=== PATIENT | female | born 1965 | race American Indian/Alaskan Native ===

== ENCOUNTER 2017-11-08 15:08 | Emergency (ER) | payer SELFPAY ==
--- NOTE | 2017-11-08 21:06 | Emergency Department Report ---
ED General Adult HPI - General Chief complaint: Extremity Problem,Nontraumatic Stated complaint: BILATERAL ANKLE SWELLING Time Seen by Provider: 11/08/17 20:53 Source: patient, RN notes reviewed Mode of arrival: Ambulatory Limitations: No Limitations - History of Present Illness Initial comments: This is a 52-year-old female who was previously unknown to this provider. She does not have a local primary care doctor. She endorses a past history of hypertension, diabetes, chronic intermittent left lower extremity edema after multiple orthopedic surgeries. She presents to the ER with nontraumatic bilateral foot and ankle swelling which has been present for the past 3-4 days. It does not go down with rest. It is mildly painful and achy. There is no chest pain or shortness of breath. There is no hematemesis or bright red blood per rectum. Patient reports a recent 15 hour trip to [place] by automobile. Her symptoms are constant, did not radiate anywhere, and did not have exacerbating or relieving factors. -: Gradual, days(s) Location: left, right, lower extremity Consistency: constant Improves with: none Worsens with: none Associated Symptoms: denies other symptoms. denies: confusion, chest pain, cough, diaphoresis, fever/chills, headaches, loss of appetite, malaise, nausea/ vomiting, rash, seizure, shortness of breath, syncope, weakness - Related Data Home Medications Medication Instructions Recorded Confirmed Last Taken Aspirin 81 mg PO DAILY 06/10/16 06/10/16 06/09/16 Ferrous Sulfate [Feosol] 325 mg PO QDAY 06/10/16 06/10/16 Unknown Lisinopril/Hydrochlorothiazide 1 tab PO DAILY 06/10/16 06/10/16 06/09/16 [Zestoretic 10-12.5 mg] Metformin HCl [Fortamet ER] 1,000 mg PO BID 06/10/16 06/10/16 06/10/16 Ranitidine HCl [Zantac 150 MG TAB] 150 mg PO DAILY 06/10/16 06/10/16 Unknown Allergies Allergy/AdvReac Type Severity Reaction Status Date / Time Penicillins Allergy Hives Verified 01/29/16 21:50 ED Review of Systems ROS: Stated complaint: BILATERAL ANKLE SWELLING Other details as noted in HPI Comment: All other systems reviewed and negative ED Past Medical Hx - Past Medical History Hx Hypertension: Yes Hx Diabetes: Yes - Surgical History Additional Surgical History: tubal ligation. multiple left foot surgeries - Social History Smoking Status: Never Smoker Substance Use Type: Alcohol - Medications Home Medications: Home Medications Medication Instructions Recorded Confirmed Last Taken Type Aspirin 81 mg PO DAILY 06/10/16 06/10/16 06/09/16 History Ferrous Sulfate [Feosol] 325 mg PO QDAY 06/10/16 06/10/16 Unknown History Lisinopril/Hydrochlorothiazide 1 tab PO DAILY 06/10/16 06/10/16 06/09/16 History [Zestoretic 10-12.5 mg] Metformin HCl [Fortamet ER] 1,000 mg PO BID 06/10/16 06/10/16 06/10/16 History Ranitidine HCl [Zantac 150 MG TAB] 150 mg PO DAILY 06/10/16 06/10/16 Unknown History ED Physical Exam - General Limitations: No Limitations General appearance: alert, in no apparent distress - Head Head exam: Present: atraumatic, normocephalic - Eye Eye exam: Present: normal appearance, EOMI. Absent: nystagmus - ENT ENT exam: Present: normal exam, normal orophraynx, mucous membranes moist, normal external ear exam - Neck Neck exam: Present: normal inspection, full ROM - Respiratory Respiratory exam: Present: normal lung sounds bilaterally. Absent: respiratory distress - Cardiovascular Cardiovascular Exam: Present: regular rate, normal rhythm, normal heart sounds. Absent: systolic murmur, diastolic murmur, rubs, gallop - GI/Abdominal GI/Abdominal exam: Present: soft, normal bowel sounds. Absent: distended, tenderness, guarding, rebound, rigid, pulsatile mass - Extremities Exam Extremities exam: Present: normal inspection, full ROM, normal capillary refill , pedal edema, other (there is no palpable cord. There is a negative Homans sign. 2+ pulses noted in the bilateral upper and lower extremities. Left lower extremity has multiple chronic scars from multiple orthopedic surgeries. The compartments are soft. There is no pain with passive range of motion.). Absent: tenderness, calf tenderness - Back Exam Back exam: Present: normal inspection, full ROM. Absent: tenderness, CVA tenderness (R), paraspinal tenderness, vertebral tenderness - Neurological Exam Neurological exam: Present: alert, oriented X3, CN II-XII intact, normal gait, other (Extraocular movements intact. Tongue midline. No facial droop. Facial sensation intact to light touch in the V1, V2, V3 distribution bilaterally. 5 and 5 strength in 4 extremities.. Sensation is intact to light touch in 4 extremities.). Absent: motor sensory deficit - Psychiatric Psychiatric exam: Present: normal affect, normal mood - Skin Skin exam: Present: warm, dry, intact, normal color. Absent: rash ED Course Vital Signs 11/08/17 11/08/17 15:58 22:03 Temperature 98.2 F Pulse Rate 88 80 Respiratory 18 18 Rate Blood Pressure 149/101 Blood Pressure 152/92 [Left] O2 Sat by Pulse 98 99 Oximetry ED Medical Decision Making - Lab Data Result diagrams: 11/08/17 21:08 11/08/17 21:08 Vital Signs 11/08/17 11/08/17 15:58 22:03 Temperature 98.2 F Pulse Rate 88 80 Respiratory 18 18 Rate Blood Pressure 149/101 Blood Pressure 152/92 [Left] O2 Sat by Pulse 98 99 Oximetry Lab Results 11/08/17 11/08/17 11/08/17 Range/Units 21:08 21:08 21:08 WBC 6.2 (4.5-11.0) K/mm3 RBC 4.84 (3.65-5.03) M/mm3 Hgb 12.7 (10.1-14.3) gm/dl Hct 38.9 (30.3-42.9) % MCV 80 (79-97) fl MCH 26 L (28-32) pg MCHC 33 (30-34) % RDW 16.2 H (13.2-15.2) % Plt Count 318 (140-440) K/mm3 PT 12.1 L (12.2-14.9) Sec. INR 0.86 L (0.87-1.13) D-Dimer < 135.00 (0-234) ng/mlDDU Sodium 139 (137-145) mmol/L Potassium 3.9 (3.6-5.0) mmol/L Chloride 98.9 (98-107) mmol/L Carbon Dioxide 28 (22-30) mmol/L Anion Gap 16 mmol/L BUN 7 (7-17) mg/dL Creatinine 0.5 L (0.7-1.2) mg/dL Estimated GFR > 60 ml/min BUN/Creatinine Ratio 14 % Glucose 151 H (65-100) mg/dL Calcium 9.8 (8.4-10.2) mg/dL Total Bilirubin 0.20 (0.1-1.2) mg/dL AST 25 (5-40) units/L ALT 17 (7-56) units/L Alkaline Phosphatase 70 (35-129) units/L Total Creatine Kinase 55 (30-135) units/L NT-Pro-B Natriuret Pep 24.08 (0-900) pg/mL Total Protein 7.2 (6.3-8.2) g/dL Albumin 4.4 (3.9-5) g/dL Albumin/Globulin Ratio 1.6 % - Medical Decision Making Differential diagnosis, including without limited to: DVT, renal insufficiency, hepatic insufficiency, venous insufficiency Assessment and plan: 52-year-old female with history of dependent edema and left lower extremity now with bilateral lower extremity edema after recent [address] trip to [place]. There are no contraindications to systemic anticoagulation empirically. There is no chest pain or shortness of breath and the physical exam shows lower extremity edema. A d-dimer was negative. Laboratory studies were unremarkable, patient had no focal pulmonary findings on exam, therefore did not feel like chest x-ray was indicated. Outpatient lower extremity DVT study has been ordered as the patient presented after the vascular lab is closed. The patient will be instructed to return at 8:00 in the morning to have her bilateral lower extremity DVT study performed. Critical care attestation.: If time is entered above; I have spent that time in minutes in the direct care of this critically ill patient, excluding procedure time. ED Disposition Clinical Impression: Lower extremity edema Disposition: DC-01 TO HOME OR SELFCARE Is pt being admited?: No Does the pt Need Aspirin: No Condition: Stable Instructions: Leg Edema (ED) Additional Instructions: please call [phone], listen for the prompts and select option 1 to speak to our staff, Available Wednesday through Wednesday, 7 am to 5 pm PM to assist you. Make certain to bring the ultrasound requisition form with you. Please return to the ER right away with chest pain, shortness of breath, passing out, lightheadedness, shortness of breath, new, worsening or different symptoms. Referrals: PRIMARY CARE, [Primary Care Provider] - 3-5 Days DICRISTINA,MJ, MD [Staff Physician] - 3-5 Days Forms: Work/School Release Form(ED)
[2017-11-08 21:29] LABS: Hematocrit 38.9 % (30.3-42.9); Hemoglobin 12.7 gm/dl (10.1-14.3); Mean Corpuscular HGB Conc 33 % (30-34); Mean Corpuscular Hemoglobin 26 pg (28-32); Mean Corpuscular Volume 80 fl (79-97); Platelet Count 318 K/mm3 (140-440); Red Blood Count 4.84 M/mm3 (3.65-5.03); Red Cell Distribution Width 16.2 % (13.2-15.2)
[2017-11-08 21:39] LABS: INR 0.86 (0.87-1.13)
[2017-11-08 21:58] LABS: Alanine Aminotransferase 17 units/L (7-56); Albumin 4.4 g/dL (3.9-5); BUN/Creatinine Ratio 14; Blood Urea Nitrogen 7 mg/dL (7-17); Calcium 9.8 mg/dL (8.4-10.2); Hemolysis Index 2
[2017-11-08 22:04] VITALS: BP 152/92
[2017-11-08] MEDS ORDERED: TYLENOL PO ONE (22:05)
[2017-11-08] MEDS ORDERED: LOVENOX SUB-Q ONE (22:06)
== END 2017-11-08 22:43 | disposition home or self-care (01) ==
LOC: ED 15:08
DX: R60.9 Edema, unspecified (principal); I10 Essential (primary) hypertension; E11.9 Type 2 diabetes mellitus without complications; Z88.0 Allergy status to penicillin; Z79.82 Long term (current) use of aspirin
CPT/HCPCS: 36415; 80053; 82550; 83880; 85027; 85379; 85610; 96372; 99283; J1650

== ENCOUNTER 2017-11-09 11:05 | Outpatient (CLI) | payer SELFPAY | END 2017-11-09 11:06 | disposition home or self-care (01) | LOC: VAS 11:05 | PROVIDERS: ATTEND Emergency Medicine | DX: M79.661 Pain in right lower leg (principal); M79.662 Pain in left lower leg; M79.89 Other specified soft tissue disorders | CPT/HCPCS: 93970 ==

== ENCOUNTER 2018-05-18 17:50 | Emergency (ER) | payer SELFPAY ==
[2018-05-18] MEDS ORDERED: ZESTRIL PO ONE (18:29)
[2018-05-18] MEDS ORDERED: ZESTRIL ONE (18:30)
[2018-05-18] MEDS ORDERED: NORVASC PO ONE (20:32)
[2018-05-18] MEDS ORDERED: NORVASC ONE (20:37)
--- NOTE | 2018-05-18 21:19 | Emergency Department Report ---
ED Extremity Problem HPI - General Chief complaint: Extremity Injury, Lower Stated complaint: ANKLE/BACK PAIN Source: patient Mode of arrival: Ambulatory Limitations: No Limitations - History of Present Illness Initial comments: 52-year-old -[place] female comes in complaining of left ankle pain 5 days and left great toe 4 days. Patient reports that she has a history of chronic left ankle swelling status post left ankle fusion. She complains of bilateral ankle swelling. Patient does admit to recently starting a new job where she is constantly on her feet lifting and moving it was noted in triage the patient's blood pressure was 202/122 patient admits that she has been ran out of her hypertensive medicine and the last 2 days. Patient denies any blurred vision no dizziness she does admit to a slight headache denies any chest pain denies any shortness of breathing she denies any recent trauma to her foot. Patient has not taken anything for pain. MD Complaint: extremity swelling -: days(s) (5) Location: left (left great toe), bilateral lower extremity (ankle swelling) -: Yes arthralgia Severity scale (0 -10): 8 Consistency: intermittent Improves with: elevation, rest Worsens with: walking Associated Symptoms: denies other symptoms - Related Data Home Medications Medication Instructions Recorded Confirmed Last Taken Aspirin 81 mg PO DAILY 06/10/16 06/10/16 06/09/16 Ferrous Sulfate [Feosol] 325 mg PO QDAY 06/10/16 06/10/16 Unknown Lisinopril/Hydrochlorothiazide 1 tab PO DAILY 06/10/16 06/10/16 06/09/16 [Zestoretic 10-12.5 mg] Metformin HCl [Fortamet ER] 1,000 mg PO BID 06/10/16 06/10/16 06/10/16 Ranitidine HCl [Zantac 150 MG TAB] 150 mg PO DAILY 06/10/16 06/10/16 Unknown Previous Rx's Medication Instructions Recorded Last Taken Type Ibuprofen [Motrin] 800 mg PO Q8HR PRN #20 tablet 01/28/18 Unknown Rx traMADol [Ultram 50 MG tab] 50 mg PO Q6HR PRN #20 tablet 01/28/18 Unknown Rx Lisinopril/Hydrochlorothiazide 1 tab PO QDAY #15 tab 05/18/18 Unknown Rx [Zestoretic 20-12.5 mg] traMADol [Ultram 50 MG tab] 50 mg PO Q6HR #12 tablet 05/18/18 Unknown Rx Allergies Allergy/AdvReac Type Severity Reaction Status Date / Time Penicillins Allergy Hives Verified 01/29/16 21:50 ED Review of Systems ROS: Stated complaint: ANKLE/BACK PAIN Other details as noted in HPI Constitutional: denies: chills, fever Eyes: denies: eye pain, eye discharge, vision change ENT: denies: ear pain, throat pain Respiratory: denies: cough, shortness of breath, wheezing Cardiovascular: denies: chest pain, palpitations Endocrine: no symptoms reported Musculoskeletal: joint swelling, arthralgia ED Past Medical Hx - Past Medical History Previous Medical History?: Yes Hx Hypertension: Yes Hx Diabetes: Yes - Surgical History Additional Surgical History: tubal ligation. multiple left foot surgeries - Social History Smoking Status: Current Every Day Smoker Substance Use Type: Alcohol - Medications Home Medications: Home Medications Medication Instructions Recorded Confirmed Last Taken Type Aspirin 81 mg PO DAILY 06/10/16 06/10/16 06/09/16 History Ferrous Sulfate [Feosol] 325 mg PO QDAY 06/10/16 06/10/16 Unknown History Lisinopril/Hydrochlorothiazide 1 tab PO DAILY 06/10/16 06/10/16 06/09/16 History [Zestoretic 10-12.5 mg] Metformin HCl [Fortamet ER] 1,000 mg PO BID 06/10/16 06/10/16 06/10/16 History Ranitidine HCl [Zantac 150 MG TAB] 150 mg PO DAILY 06/10/16 06/10/16 Unknown History Ibuprofen [Motrin] 800 mg PO Q8HR PRN #20 tablet 01/28/18 Unknown Rx traMADol [Ultram 50 MG tab] 50 mg PO Q6HR PRN #20 tablet 01/28/18 Unknown Rx Lisinopril/Hydrochlorothiazide 1 tab PO QDAY #15 tab 05/18/18 Unknown Rx [Zestoretic 20-12.5 mg] traMADol [Ultram 50 MG tab] 50 mg PO Q6HR #12 tablet 05/18/18 Unknown Rx ED Physical Exam - General Limitations: No Limitations General appearance: alert, in no apparent distress - Head Head exam: Present: atraumatic, normocephalic - ENT ENT exam: Present: mucous membranes moist - Respiratory Respiratory exam: Present: normal lung sounds bilaterally. Absent: respiratory distress - Cardiovascular Cardiovascular Exam: Present: regular rate, normal rhythm. Absent: systolic murmur, diastolic murmur, rubs, gallop - Expanded Lower Extremity Exam Left Upper Leg exam: Present: full ROM Knee exam: Present: full ROM Lower Leg exam: Present: swelling. Absent: palpable cord, Vanesa's sign Ankle exam: Present: swelling Foot/Toe exam: Present: tenderness (right great toe). Absent: swelling, ecchymosis, erythema Neuro vascular tendon exam: Present: no vascular compromise Gait: Positive: not tested/not observed - Neurological Exam Neurological exam: Present: alert, oriented X3 - Psychiatric Psychiatric exam: Present: normal affect, normal mood - Skin Skin exam: Present: warm, dry, intact, normal color. Absent: rash ED Course Vital Signs 05/18/18 05/18/18 05/18/18 18:17 18:31 20:35 Temperature 98.4 F Pulse Rate 87 90 84 Respiratory 18 Rate Blood Pressure 202/122 202/122 201/119 Blood Pressure [Left] O2 Sat by Pulse 95 Oximetry 05/18/18 22:51 Temperature Pulse Rate 74 Respiratory 16 Rate Blood Pressure Blood Pressure 212/119 [Left] O2 Sat by Pulse 98 Oximetry ED Medical Decision Making - Medical Decision Making Patient has been evaluated by this provider in fast track. Patient is given a lisinopril 20 mg and amlodipine 10 blood pressure control Patient has been given tramadol for pain management Discussed patient that she needs to take her blood pressure medicine as prescribed. Discussed patient to elevate her legs in the afternoon try to avoid prolonged time with standing and walking. Discussed patient to follow up with her primary care provider in the next 3-5 days for follow-up. Discussed patient she can take [id number] Tylenol or tramadol prescription. Patient is asymptomatic hypertension refill her blood pressure medication. Have her follow-up with her primary care provider. Critical care attestation.: If time is entered above; I have spent that time in minutes in the direct care of this critically ill patient, excluding procedure time. ED Disposition Clinical Impression: Great toe pain Qualifiers: Laterality: left Qualified Code(s): M79.675 - Pain in left toe(s) Right ankle sprain Qualifiers: Encounter type: initial encounter Involved ligament of ankle: unspecified ligament Qualified Code(s): S93.401A - Sprain of unspecified ligament of right ankle, initial encounter Disposition: DC-01 TO HOME OR SELFCARE Is pt being admited?: No Does the pt Need Aspirin: No Condition: Stable Additional Instructions: Please take blood pressure medication as prescribed. If the area for follow-up with her primary care provider. Please take pain medication as needed. Please wear your ankle stirrup on your right ankle as needed. Please elevate her feet as much as possible. In follow-up which a certified ethical hacker in regards to your left great toe. Prescriptions: Lisinopril/Hydrochlorothiazide [Zestoretic 20-12.5 mg] 1 tab PO QDAY #15 tab traMADol [Ultram 50 MG tab] 50 mg PO Q6HR #12 tablet Referrals: PRIMARY CARE, [Primary Care Provider] - 3-5 Days Your, primary care provider [Other] - 3-5 Days ARNOLD SAEED DPM [Staff Physician] - 3-5 Days ROSE ANAYA MD [Staff Physician] - 3-5 Days Forms: Work/School Release Form(ED)
[2018-05-18] MEDS ORDERED: ULTRAM PO ONE (21:27)
[2018-05-18 22:52] VITALS: BP 212/119
== END 2018-05-18 23:26 | disposition home or self-care (01) ==
LOC: ED 17:50
DX: S93.401A Sprain of unspecified ligament of right ankle, initial encounter (principal); M79.675 Pain in left toe(s); M25.572 Pain in left ankle and joints of left foot; R51 Headache; I10 Essential (primary) hypertension; E11.9 Type 2 diabetes mellitus without complications; F17.200 Nicotine dependence, unspecified, uncomplicated; Z98.51 Tubal ligation status; Z79.899 Other long term (current) drug therapy; Z88.0 Allergy status to penicillin; X50.9XXA Other and unspecified overexertion or strenuous movements or postures, initial encounter; Y93.89 Activity, other specified; Y99.8 Other external cause status; Y92.69 Other specified industrial and construction area as the place of occurrence of the external cause
CPT/HCPCS: 99282

== ENCOUNTER 2018-10-11 10:45 | Emergency (ER) | payer OTHER ==
[2018-10-11] MEDS ORDERED: CATAPRES PO ONE (11:24)
[2018-10-11] MEDS ORDERED: CATAPRES ONE (11:27)
[2018-10-11] MEDS ORDERED: ASPIRIN PO ONE (11:29)
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
[2018-10-11] MEDS ORDERED: BABY ASPIRIN ONE (11:33)
[2018-10-11 12:01] LABS: Basophils # (Auto) 0.1 K/mm3 (0.0-0.1); Basophils % (Auto) 1.4 % (0.0-1.8); Eosinophils # (Auto) 0.1 K/mm3 (0.0-0.4); Eosinophils % (Auto) 2.4 % (0.0-4.3); Hematocrit 36.7 % (30.3-42.9); Hemoglobin 12.5 gm/dl (10.1-14.3); Lymphocytes # (Auto) 1.3 K/mm3 (1.2-5.4); Lymphocytes % (Auto) 28.9 % (13.4-35.0); Mean Corpuscular HGB Conc 34 % (30-34); Mean Corpuscular Volume 81 fl (79-97); Monocytes # (Auto) 0.3 K/mm3 (0.0-0.8); Monocytes % (Auto) 7.3 % (0.0-7.3); Platelet Count 342 K/mm3 (140-440); Red Blood Count 4.56 M/mm3 (3.65-5.03); Red Cell Distribution Width 14.8 % (13.2-15.2)
[2018-10-11 12:26] LABS: BUN/Creatinine Ratio 13; Blood Urea Nitrogen 8 mg/dL (7-17); Calcium 8.9 mg/dL (8.4-10.2); Hemolysis Index 5
[2018-10-11] MEDS ORDERED: NORCO 5/325 PO ONE (12:56)
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
[2018-10-11 14:40] VITALS: BP 129/65
== END 2018-10-11 15:13 | disposition home or self-care (01) ==
LOC: ED 10:45
DX: R07.89 Other chest pain (principal); R20.0 Anesthesia of skin; I10 Essential (primary) hypertension; E11.9 Type 2 diabetes mellitus without complications; Z98.51 Tubal ligation status; Z79.82 Long term (current) use of aspirin; Z88.0 Allergy status to penicillin
CPT/HCPCS: 36415; 71045; 80048; 84484; 85025; 93005; 93010; 99284

== ENCOUNTER 2018-11-13 13:52 | Emergency (ER) | payer OTHER ==
[2018-11-13 14:47] VITALS: BP 150/91
--- NOTE | 2018-11-13 14:47 | Emergency Department Report ---
Blank Doc - Documentation Documentation: was at work and puicked up heavy laundry detergent and afterwards noticed pain and swelling to wrist. Feels tingling to wrist and hand since.
[2018-11-13] MEDS ORDERED: TORADOL IM STA (14:48)
--- NOTE | 2018-11-13 15:40 | XRay Report ---
PROCEDURE: XR WRIST 3+V LT TECHNIQUE: 3 views left wrist HISTORY: wrist pain COMPARISONS: Left wrist x-ray January 28, 2018 FINDINGS: No acute fracture or malalignment. Joint space maintained. No significant degenerative change. Normal mineralization. No soft tissue radiopaque foreign body. IMPRESSION: Normal for age. No acute abnormality.. This document is electronically signed by Billy Agarwal MD., November 13 2018 03:38:34 PM ET
--- NOTE | 2018-11-13 17:41 | Emergency Department Report ---
ED Upper Extremity Inj HPI - General Chief Complaint: Extremity Injury, Upper Stated Complaint: LT WRIST PAIN Time Seen by Provider: 11/13/18 14:46 Source: patient Mode of arrival: Ambulatory Limitations: No Limitations - History of Present Illness Initial Comments: This is a 53-year-old female nontoxic, well nourished in appearance, no acute signs of distress presents to the ED with c/o of left wrist pain 1 week. Patient stated that while she was lifting she felt a popping sensation. Patient denies any other trauma. Patient denies any numbness, tingling, fever, chills, nausea, vomiting, chest pain, shortness of breath, headache, stiff neck. Patient denies any joint swelling or joint redness. Patient some ROM due to pain. Patient stated allergies to PCN. MD Complaint: Injury to:: left, wrist -: week(s) (1) Other Extremity Injury: Wrist: Left Severity scale (0 -10): 8 Improves With: immobilization Worsens With: movement of extremity Associated Symptoms: denies other symptoms. denies: weakness, numbness, neck pain, suspects foreign body, nausea/vomiting, heard/felt popping sensat - Related Data Home Medications Medication Instructions Recorded Confirmed Last Taken Aspirin 81 mg PO DAILY 06/10/16 06/10/16 06/09/16 Ferrous Sulfate [Feosol] 325 mg PO QDAY 06/10/16 06/10/16 Unknown Metformin HCl [Fortamet ER] 1,000 mg PO BID 06/10/16 06/10/16 06/10/16 Ranitidine HCl [Zantac 150 MG TAB] 150 mg PO DAILY 06/10/16 06/10/16 Unknown Previous Rx's Medication Instructions Recorded Last Taken Type Ibuprofen [Motrin] 800 mg PO Q8HR PRN #20 tablet 01/28/18 Unknown Rx traMADol [Ultram 50 MG tab] 50 mg PO Q6HR PRN #20 tablet 01/28/18 Unknown Rx Lisinopril/Hydrochlorothiazide 1 tab PO QDAY #15 tab 05/18/18 Unknown Rx [Zestoretic 20-12.5 mg] Lisinopril/Hydrochlorothiazide 1 tab PO QDAY #30 tab 05/18/18 Unknown Rx [Zestoretic 20-25 mg] traMADol [Ultram 50 MG tab] 50 mg PO Q6HR #12 tablet 05/18/18 Unknown Rx HYDROcodone/APAP 5-325 [[place] 1 each PO Q6HR PRN #20 tablet 10/11/18 Unknown Rx 5/325] Acetaminophen/Codeine [Tylenol 1 tab PO Q6H PRN #12 tab 11/13/18 Unknown Rx /Codeine # 3 tab] Ibuprofen [Motrin] 600 mg PO Q8H PRN #20 tablet 11/13/18 Unknown Rx Allergies Allergy/AdvReac Type Severity Reaction Status Date / Time Penicillins Allergy Hives Verified 01/29/16 21:50 ED Review of Systems ROS: Stated complaint: LT WRIST PAIN Other details as noted in HPI Constitutional: denies: chills, fever Eyes: denies: eye pain, eye discharge, vision change ENT: denies: ear pain, throat pain Respiratory: denies: cough, shortness of breath, wheezing Cardiovascular: denies: chest pain, palpitations Endocrine: no symptoms reported Gastrointestinal: denies: abdominal pain, nausea, diarrhea Genitourinary: denies: urgency, dysuria, discharge Musculoskeletal: denies: back pain, joint swelling, arthralgia Skin: denies: rash, lesions Neurological: denies: headache, weakness, paresthesias Psychiatric: denies: anxiety, depression Hematological/Lymphatic: denies: easy bleeding, easy bruising ED Past Medical Hx - Past Medical History Hx Hypertension: Yes Hx Diabetes: Yes - Surgical History Additional Surgical History: tubal ligation. multiple left foot surgeries - Social History Smoking Status: Never Smoker Substance Use Type: None - Medications Home Medications: Home Medications Medication Instructions Recorded Confirmed Last Taken Type Aspirin 81 mg PO DAILY 06/10/16 06/10/16 06/09/16 History Ferrous Sulfate [Feosol] 325 mg PO QDAY 06/10/16 06/10/16 Unknown History Metformin HCl [Fortamet ER] 1,000 mg PO BID 06/10/16 06/10/16 06/10/16 History Ranitidine HCl [Zantac 150 MG TAB] 150 mg PO DAILY 06/10/16 06/10/16 Unknown History Ibuprofen [Motrin] 800 mg PO Q8HR PRN #20 tablet 01/28/18 Unknown Rx traMADol [Ultram 50 MG tab] 50 mg PO Q6HR PRN #20 tablet 06/22/18 Unknown Rx Lisinopril/Hydrochlorothiazide 1 tab PO QDAY #15 tab 05/18/18 Unknown Rx [Zestoretic 20-12.5 mg] Lisinopril/Hydrochlorothiazide 1 tab PO QDAY #30 tab 05/18/18 Unknown Rx [Zestoretic 20-25 mg] traMADol [Ultram 50 MG tab] 50 mg PO Q6HR #12 tablet 05/18/18 Unknown Rx HYDROcodone/APAP 5-325 [[place] 1 each PO Q6HR PRN #20 tablet 10/11/18 Unknown Rx 5/325] Acetaminophen/Codeine [Tylenol 1 tab PO Q6H PRN #12 tab 11/13/18 Unknown Rx /Codeine # 3 tab] Ibuprofen [Motrin] 600 mg PO Q8H PRN #20 tablet 11/13/18 Unknown Rx ED Physical Exam - General Limitations: No Limitations General appearance: alert, in no apparent distress - Head Head exam: Present: atraumatic, normocephalic - Eye Eye exam: Present: normal appearance - Neck Neck exam: Present: normal inspection, full ROM - Extremities Exam Extremities exam: Present: normal inspection, full ROM, tenderness, normal capillary refill. Absent: joint swelling, calf tenderness - Expanded Upper Extremity Exam Left General: Present: normal inspection Shoulder Exam: Present: normal inspection, full ROM. Absent: tenderness Upper Arm exam: Present: normal inspection, full ROM. Absent: tenderness Elbow exam: Present: normal inspection, full ROM. Absent: tenderness Forearm Wrist exam: Present: normal inspection, full ROM. Absent: tenderness, swelling Hand Wrist exam: Present: normal inspection, full ROM, tenderness. Absent: swelling, abrasion, laceration, ecchymosis, deformity, crepidus, dislocation, erythema, amputation, nail avulsion, subungual hematoma Vascular: Present: vascular compromise, normal capillary refill - Back Exam Back exam: Present: normal inspection, full ROM - Neurological Exam Neurological exam: Present: alert, oriented X3 - Psychiatric Psychiatric exam: Present: normal affect, normal mood - Skin Skin exam: Present: warm, dry, intact, normal color. Absent: rash ED Course Vital Signs 11/13/18 14:46 Temperature 98.7 F Pulse Rate 105 H Respiratory 18 Rate Blood Pressure 150/91 O2 Sat by Pulse 97 Oximetry - Reevaluation(s) Reevaluation #1: 11/13/18 17:40 Patient is speaking in full sentences with no signs of distress noted. ED Medical Decision Making - Medical Decision Making This is a 53-year-old female that presents with left wrist strain. Patient is stable and was examined by me. I referred patient to an orthopedic doctor for further evaluation for possible MRI. X-ray has been obtained and dictated by the radiologist. Patient is notified of the x-ray report with noted by the patient. Patient does have normal gait with no tenderness and no joint swelling. No ecchymosis. no joint redness or swelling. Not warm to touch. No signs of cellulites present. Patient received a wrist immobilize. Patient was instructed to RICE therapy. Patient received Motrin for pain. Patient is discharged with Motrin. At time of discharge, the patient does not seem toxic or ill in appearance. No acute signs of distress noted. Patient agrees to discharge treatment plan of care. No further questions noted by the patient. Critical care attestation.: If time is entered above; I have spent that time in minutes in the direct care of this critically ill patient, excluding procedure time. ED Disposition Clinical Impression: Strain of left wrist Qualifiers: Encounter type: initial encounter Qualified Code(s): S66.912A - Strain of unspecified muscle, fascia and tendon at wrist and hand level, left hand, initial encounter Disposition: TO HOME OR SELFCARE Is pt being admited?: No Does the pt Need Aspirin: No Condition: Stable Instructions: Wrist Injury (ED), RICE Therapy (ED), Acetaminophen/Codeine (By mouth) Additional Instructions: Follow-up with a orthopedic doctor in 3-5 days or if symptoms worsen and continue return to emergency room as soon as possible. Do not operate any machinery while taking Tylenol with codeine as this may cause drowsiness. Prescriptions: Ibuprofen [Motrin] 600 mg PO Q8H PRN #20 tablet PRN Reason: Pain Acetaminophen/Codeine [Tylenol /Codeine # 3 tab] 1 tab PO Q6H PRN #12 tab PRN Reason: Pain , Severe (7-10) Referrals: PRIMARY CAREMD [Primary Care Provider] - 3-5 Days ORLANDO ABRAHAM MD [Staff Physician] - 3-5 Days [facility] [Outside] - 3-5 Days Forms: Work/School Release Form(ED)
== END 2018-11-13 17:52 | disposition home or self-care (01) ==
LOC: ED 13:52
DX: S66.912A Strain of unspecified muscle, fascia and tendon at wrist and hand level, left hand, initial encounter (principal); I10 Essential (primary) hypertension; E11.9 Type 2 diabetes mellitus without complications; Z88.0 Allergy status to penicillin; X50.9XXA Other and unspecified overexertion or strenuous movements or postures, initial encounter; Y93.89 Activity, other specified; Y92.89 Other specified places as the place of occurrence of the external cause; Y99.8 Other external cause status
CPT/HCPCS: 29125; 73110; 96372; 99283; J1885

== ENCOUNTER 2019-03-28 20:49 | Emergency (ER) | payer OTHER ==
[2019-03-28 21:30] LABS: Basophils # (Auto) 0.1 K/mm3 (0.0-0.1); Basophils % (Auto) 1.3 % (0.0-1.8); Eosinophils # (Auto) 0.1 K/mm3 (0.0-0.4); Eosinophils % (Auto) 2.1 % (0.0-4.3); Hematocrit 39.5 % (30.3-42.9); Hemoglobin 13.3 gm/dl (10.1-14.3); Lymphocytes # (Auto) 1.8 K/mm3 (1.2-5.4); Lymphocytes % (Auto) 35.8 % (13.4-35.0); Mean Corpuscular HGB Conc 34 % (30-34); Mean Corpuscular Volume 84 fl (79-97); Monocytes # (Auto) 0.5 K/mm3 (0.0-0.8); Monocytes % (Auto) 9.3 % (0.0-7.3); Platelet Count 286 K/mm3 (140-440); Red Blood Count 4.71 M/mm3 (3.65-5.03); Red Cell Distribution Width 14.9 % (13.2-15.2)
[2019-03-28] MEDS ORDERED: HumuLIN R IV ONE (21:45)
[2019-03-28] MEDS ORDERED: NACL 0.9% 1000 ML 1,000 ML IV ONE (21:45)
[2019-03-28 21:46] LABS: Bilirubin,Urine NEG (Negative); Blood,Urine SM (Negative); Color,Urine Yellow (Yellow); Protein,Urine <15 mg/dL mg/dL (Negative); Urobilinogen,Urine < 2.0 mg/dL (<2.0)
[2019-03-28 21:52] LABS: Alanine Aminotransferase 10 units/L (7-56); Albumin 4.2 g/dL (3.9-5); BUN/Creatinine Ratio 18; Blood Urea Nitrogen 14 mg/dL (7-17); Calcium 9.6 mg/dL (8.4-10.2); Hemolysis Index 3
[2019-03-28] MEDS ORDERED: K-DUR PO ONE (22:13)
--- NOTE | 2019-03-28 23:16 | Emergency Department Report ---
ED General Adult HPI - General Chief complaint: Hyperglycemia Stated complaint: HIGH BLOOD GLUCOSE Time Seen by Provider: 03/28/19 21:36 Source: patient Mode of arrival: Ambulatory Limitations: No Limitations - History of Present Illness Initial comments: 53 year old female with a past medical history of [id number] diabetes and hypertension presents to the Hospital complaining of hyperglycemia. She has been out of her metformin 1000 mg twice a day for the past 4 days. She has had increased urination. Today her sugar was in the 500s. She has been lightheaded when sitting up from a bending position. No complaints of chest pain, nausea, vomiting, diarrhea, dysuria, or abdominal pain. Patient caught her doctor but was unable to get a refill. - Related Data Home Medications Medication Instructions Recorded Confirmed Last Taken Aspirin 81 mg PO DAILY 06/10/16 06/10/16 06/09/16 Ferrous Sulfate [Feosol] 325 mg PO QDAY 06/10/16 06/10/16 Unknown Metformin HCl [Fortamet ER] 1,000 mg PO BID 06/10/16 06/10/16 06/10/16 raNITIdine HCl [Zantac 150 MG TAB] 150 mg PO DAILY 06/10/16 06/10/16 Unknown Previous Rx's Medication Instructions Recorded Last Taken Type Ibuprofen [Motrin] 800 mg PO Q8HR PRN #20 tablet 01/28/18 Unknown Rx traMADol [Ultram 50 MG tab] 50 mg PO Q6HR PRN #20 tablet 01/28/18 Unknown Rx Lisinopril/Hydrochlorothiazide 1 tab PO QDAY #15 tab 05/18/18 Unknown Rx [Zestoretic 20-12.5 mg] Lisinopril/Hydrochlorothiazide 1 tab PO QDAY #30 tab 05/18/18 Unknown Rx [Zestoretic 20-25 mg] traMADol [Ultram 50 MG tab] 50 mg PO Q6HR #12 tablet 05/18/18 Unknown Rx HYDROcodone/APAP 5-325 [[place] 1 each PO Q6HR PRN #20 tablet 10/11/18 Unknown Rx 5/325] Acetaminophen/Codeine [Tylenol 1 tab PO Q6H PRN #12 tab 11/13/18 Unknown Rx /Codeine # 3 tab] Ibuprofen [Motrin] 600 mg PO Q8H PRN #20 tablet 11/13/18 Unknown Rx Metformin HCl [metFORMIN] 1,000 mg PO BID #60 tablet 03/28/19 Unknown Rx Allergies Allergy/AdvReac Type Severity Reaction Status Date / Time Penicillins Allergy Hives Verified 01/29/16 21:50 ED Review of Systems ROS: Stated complaint: HIGH BLOOD GLUCOSE Other details as noted in HPI Comment: All other systems reviewed and negative ED Past Medical Hx - Past Medical History Previous Medical History?: Yes Hx Hypertension: Yes Hx Diabetes: Yes - Surgical History Past Surgical History?: Yes Additional Surgical History: tubal ligation. multiple left foot surgeries. c- section x 3 - Social History Smoking Status: Never Smoker Substance Use Type: Alcohol - Medications Home Medications: Home Medications Medication Instructions Recorded Confirmed Last Taken Type Aspirin 81 mg PO DAILY 06/10/16 06/10/16 06/09/16 History Ferrous Sulfate [Feosol] 325 mg PO QDAY 06/10/16 06/10/16 Unknown History Metformin HCl [Fortamet ER] 1,000 mg PO BID 06/10/16 06/10/16 06/10/16 History raNITIdine HCl [Zantac 150 MG TAB] 150 mg PO DAILY 06/10/16 06/10/16 Unknown History Ibuprofen [Motrin] 800 mg PO Q8HR PRN #20 tablet 01/28/18 Unknown Rx traMADol [Ultram 50 MG tab] 50 mg PO Q6HR PRN #20 tablet 01/28/18 Unknown Rx Lisinopril/Hydrochlorothiazide 1 tab PO QDAY #15 tab 05/18/18 Unknown Rx [Zestoretic 20-12.5 mg] Lisinopril/Hydrochlorothiazide 1 tab PO QDAY #30 tab 05/18/18 Unknown Rx [Zestoretic 20-25 mg] traMADol [Ultram 50 MG tab] 50 mg PO Q6HR #12 tablet 05/18/18 Unknown Rx HYDROcodone/APAP 5-325 [[place] 1 each PO Q6HR PRN #20 tablet 10/11/18 Unknown Rx 5/325] Acetaminophen/Codeine [Tylenol 1 tab PO Q6H PRN #12 tab 11/13/18 Unknown Rx /Codeine # 3 tab] Ibuprofen [Motrin] 600 mg PO Q8H PRN #20 tablet 11/13/18 Unknown Rx Metformin HCl [metFORMIN] 1,000 mg PO BID #60 tablet 03/28/19 Unknown Rx ED Physical Exam - General Limitations: No Limitations - Other Other exam information: General: No acute distress Head: Atraumatic normocephalic Eyes: Normal appearance, pupils equal reactive to light, extraocular movements intact ENT: Normal oropharynx Neck: Normal appearance, no C-spine tenderness, no meningismus Chest: Clear to auscultation bilaterally, no wheezes, rales, or crackles Cardiovascular: Regular rate and rhythm Abdomen: Soft, nondistended, nontender, no rebound or guarding, normal bowel sounds Back: Normal inspection, nontender Extremity: Normal inspection, no deformity, full range of motion Neuro: Alert and oriented 3, speech clear, no gross motor or sensory deficit Psychiatric: Normal affect Skin: No rash, warmth, or erythema ED Course Vital Signs 03/28/19 03/28/19 21:02 21:06 Temperature 98.0 F Pulse Rate 71 Respiratory 20 Rate Blood Pressure 147/92 O2 Sat by Pulse 81 L 96 Oximetry ED Medical Decision Making - Lab Data Result diagrams: 03/28/19 21:17 03/28/19 21:17 Lab Results 03/28/19 03/28/19 03/28/19 Range/Units 21:08 21:10 21:17 WBC 4.9 (4.5-11.0) K/mm3 RBC 4.71 (3.65-5.03) M/mm3 Hgb 13.3 (10.1-14.3) gm/dl Hct 39.5 (30.3-42.9) % MCV 84 (79-97) fl MCH 28 (28-32) pg MCHC 34 (30-34) % RDW 14.9 (13.2-15.2) % Plt Count 286 (140-440) K/mm3 Lymph % (Auto) 35.8 H (13.4-35.0) % [place] % (Auto) 9.3 H (0.0-7.3) % Eos % (Auto) 2.1 (0.0-4.3) % Baso % (Auto) 1.3 (0.0-1.8) % Lymph # 1.8 (1.2-5.4) K/mm3 [place] # 0.5 (0.0-0.8) K/mm3 Eos # 0.1 (0.0-0.4) K/mm3 Baso # 0.1 (0.0-0.1) K/mm3 Seg Neutrophils % 51.5 (40.0-70.0) % Seg Neutrophils # 2.5 (1.8-7.7) K/mm3 VBG pH (7.320-7.420) Sodium (137-145) mmol/L Potassium (3.6-5.0) mmol/L Chloride (98-107) mmol/L Carbon Dioxide (22-30) mmol/L Anion Gap mmol/L BUN (7-17) mg/dL Creatinine (0.7-1.2) mg/dL Estimated GFR ml/min BUN/Creatinine Ratio % Glucose (65-100) mg/dL POC Glucose 385 H (70-105) Calcium (8.4-10.2) mg/dL Magnesium (1.7-2.3) mg/dL Total Bilirubin (0.1-1.2) mg/dL AST (5-40) units/L ALT (7-56) units/L Alkaline Phosphatase (35-129) units/L Total Protein (6.3-8.2) g/dL Albumin (3.9-5) g/dL Albumin/Globulin Ratio % Urine Color Yellow (Yellow) Urine Turbidity Clear (Clear) Urine pH 7.0 (5.0-7.0) Ur Specific [place] 1.028 (1.003-1.030) Urine Protein <15 mg/dl (Negative) mg/dL Urine Glucose (UA) >=500 (Negative) mg/dL Urine Ketones Neg (Negative) mg/dL Urine Blood Sm (Negative) Urine Nitrite Neg (Negative) Urine Bilirubin Neg (Negative) Urine Urobilinogen < 2.0 (<2.0) mg/dL Ur Leukocyte Esterase Neg (Negative) Urine WBC (Auto) 1.0 (0.0-6.0) /HPF Urine RBC (Auto) 3.0 (0.0-6.0) /HPF U Epithel Cells (Auto) 3.0 (0-13.0) /HPF 03/28/19 03/28/19 03/28/19 Range/Units 21:17 21:17 21:43 WBC (4.5-11.0) K/mm3 RBC (3.65-5.03) M/mm3 Hgb (10.1-14.3) gm/dl Hct (30.3-42.9) % MCV (79-97) fl MCH (28-32) pg MCHC (30-34) % RDW (13.2-15.2) % Plt Count (140-440) K/mm3 Lymph % (Auto) (13.4-35.0) % [place] % (Auto) (0.0-7.3) % Eos % (Auto) (0.0-4.3) % Baso % (Auto) (0.0-1.8) % Lymph # (1.2-5.4) K/mm3 [place] # (0.0-0.8) K/mm3 Eos # (0.0-0.4) K/mm3 Baso # (0.0-0.1) K/mm3 Seg Neutrophils % (40.0-70.0) % Seg Neutrophils # (1.8-7.7) K/mm3 VBG pH 7.363 (7.320-7.420) Sodium 136 L (137-145) mmol/L Potassium 2.8 L* (3.6-5.0) mmol/L Chloride 93.2 L (98-107) mmol/L Carbon Dioxide 31 H (22-30) mmol/L Anion Gap 15 mmol/L BUN 14 (7-17) mg/dL Creatinine 0.8 (0.7-1.2) mg/dL Estimated GFR > 60 ml/min BUN/Creatinine Ratio 18 % Glucose 428 H (65-100) mg/dL POC Glucose 365 H (70-105) Calcium 9.6 (8.4-10.2) mg/dL Magnesium (1.7-2.3) mg/dL Total Bilirubin 0.20 (0.1-1.2) mg/dL AST 14 (5-40) units/L ALT 10 (7-56) units/L Alkaline Phosphatase 65 (35-129) units/L Total Protein 7.8 (6.3-8.2) g/dL Albumin 4.2 (3.9-5) g/dL Albumin/Globulin Ratio 1.2 % Urine Color (Yellow) Urine Turbidity (Clear) Urine pH (5.0-7.0) Ur Specific [place] (1.003-1.030) Urine Protein (Negative) mg/dL Urine Glucose (UA) (Negative) mg/dL Urine Ketones (Negative) mg/dL Urine Blood (Negative) Urine Nitrite (Negative) Urine Bilirubin (Negative) Urine Urobilinogen (<2.0) mg/dL Ur Leukocyte Esterase (Negative) Urine WBC (Auto) (0.0-6.0) /HPF Urine RBC (Auto) (0.0-6.0) /HPF U Epithel Cells (Auto) (0-13.0) /HPF 03/28/19 03/28/19 Range/Units 22:00 23:39 WBC (4.5-11.0) K/mm3 RBC (3.65-5.03) M/mm3 Hgb (10.1-14.3) gm/dl Hct (30.3-42.9) % MCV (79-97) fl MCH (28-32) pg MCHC (30-34) % RDW (13.2-15.2) % Plt Count (140-440) K/mm3 Lymph % (Auto) (13.4-35.0) % [place] % (Auto) (0.0-7.3) % Eos % (Auto) (0.0-4.3) % Baso % (Auto) (0.0-1.8) % Lymph # (1.2-5.4) K/mm3 [place] # (0.0-0.8) K/mm3 Eos # (0.0-0.4) K/mm3 Baso # (0.0-0.1) K/mm3 Seg Neutrophils % (40.0-70.0) % Seg Neutrophils # (1.8-7.7) K/mm3 VBG pH (7.320-7.420) Sodium (137-145) mmol/L Potassium (3.6-5.0) mmol/L Chloride (98-107) mmol/L Carbon Dioxide (22-30) mmol/L Anion Gap mmol/L BUN (7-17) mg/dL Creatinine (0.7-1.2) mg/dL Estimated GFR ml/min BUN/Creatinine Ratio % Glucose (65-100) mg/dL POC Glucose 213 H (70-105) Calcium (8.4-10.2) mg/dL Magnesium 1.80 (1.7-2.3) mg/dL Total Bilirubin (0.1-1.2) mg/dL AST (5-40) units/L ALT (7-56) units/L Alkaline Phosphatase (35-129) units/L Total Protein (6.3-8.2) g/dL Albumin (3.9-5) g/dL Albumin/Globulin Ratio % Urine Color (Yellow) Urine Turbidity (Clear) Urine pH (5.0-7.0) Ur Specific [place] (1.003-1.030) Urine Protein (Negative) mg/dL Urine Glucose (UA) (Negative) mg/dL Urine Ketones (Negative) mg/dL Urine Blood (Negative) Urine Nitrite (Negative) Urine Bilirubin (Negative) Urine Urobilinogen (<2.0) mg/dL Ur Leukocyte Esterase (Negative) Urine WBC (Auto) (0.0-6.0) /HPF Urine RBC (Auto) (0.0-6.0) /HPF U Epithel Cells (Auto) (0-13.0) /HPF - Medical Decision Making She has hyperglycemia without DKA due to medication noncompliance. Hypokalemia noted and patient provided by mouth potassium. Magnesium is normal. Patient treated with insulin and normal saline reports feeling better. Patient was discharged with potassium and metformin refill. Outpatient follow-up advised. - Differential Diagnosis DKA, hyperglycemia, medication noncompliance Critical Care Time: No Critical care attestation.: If time is entered above; I have spent that time in minutes in the direct care of this critically ill patient, excluding procedure time. ED Disposition Clinical Impression: Hyperglycemia due to type 2 diabetes mellitus, Noncompliance with medication regimen, Dehydration Disposition: DC- TO HOME OR SELFCARE Is pt being admited?: No Does the pt Need Aspirin: No Condition: Stable Instructions: Diabetes Mellitus Type 2 in Adults (ED) Additional Instructions: Take the medications as prescribed. Follow-up with your doctor or with a doctor/clinic provided. Return is symptoms worsen as indicated by the discharge instructions. Prescriptions: Metformin HCl [metFORMIN] 1,000 mg PO BID #60 tablet Referrals: LALITA AVERY MD [Primary Care Provider] - 3-5 Days your, primary care doctor [Other] - 3-5 Days Time of Disposition: 23:38
[2019-03-29 00:15] VITALS: BP 137/83
== END 2019-03-29 00:14 | disposition home or self-care (01) ==
LOC: ED 20:49
DX: E11.65 Type 2 diabetes mellitus with hyperglycemia (principal); E86.0 Dehydration; I10 Essential (primary) hypertension; Z91.14 Patient's other noncompliance with medication regimen; Z88.0 Allergy status to penicillin; Z79.4 Long term (current) use of insulin; Z79.84 Long term (current) use of oral hypoglycemic drugs; Z79.82 Long term (current) use of aspirin; Z98.51 Tubal ligation status; Z98.890 Other specified postprocedural states
CPT/HCPCS: 36415; 80053; 81001; 82805; 82962; 83735; 85025; 96361; 96374; 99284; J7030; J1815

== ENCOUNTER 2019-05-10 23:06 | Emergency (ER) | payer OTHER ==
[2019-05-10 23:17] VITALS: BP 192/119
[2019-05-10] MEDS ORDERED: oxyCODONE /ACETAMINOPHEN 5-325MG TAB PO ONE (23:58)
[2019-05-10] MEDS ORDERED: ONDANSETRON 4 MG ODT TAB PO ONE (23:58)
[2019-05-10] MEDS ORDERED: KETOROLAC 30 MG/1 ML INJ IM ONE (23:58)
[2019-05-10] MEDS ORDERED: dexAMETHasone 20 MG/5 ML VIAL IM ONE (23:59)
--- NOTE | 2019-05-11 00:14 | Emergency Department Report ---
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 Patient states that she does not have any more pain medications to go home. Patient states that her primary care physician has been prescribing for her flexeril for her chronic low back pain, and that she did not of these medications about 2 weeks ago. Patient denies fall, heavy lifting, dizziness, hematuria, dysuria, urinary frequency and urgency, back pain, abdominal pain, vaginal bleeding, traumatic injury, numbness, tingling or weakness of lower extremities bilaterally, urinary or bowel incontinence and saddle paresthesia. MD Complaint: back pain, other (chronic lower back pain exacerbation) -: Sudden, hour(s) (12) Similar Symptoms Previously: Yes Place: work Radiation: buttocks Severity: severe Severity scale (0 -10): 8 Quality: sharp, aching Consistency: constant Improves With: none Worsens With: movement Context: while lifting, turning/twisting, bending Associated Symptoms: denies other symptoms. denies: confusion, weakness, chest pain, numbness, difficulty walking, cough, difficulty urinating, diaphoresis, fever/chills, abdominal pain, loss of appetite, nausea/vomiting, seizure, shortness of breath - Related Data Home Medications Medication Instructions Recorded Confirmed Last Taken Aspirin 81 mg PO DAILY 06/10/16 06/10/16 06/09/16 Ferrous Sulfate [Feosol] 325 mg PO QDAY 06/10/16 06/10/16 Unknown Metformin HCl [Fortamet ER] 1,000 mg PO BID 06/10/16 06/10/16 06/10/16 raNITIdine HCl [Zantac 150 MG TAB] 150 mg PO DAILY 06/10/16 06/10/16 Unknown Previous Rx's Medication Instructions Recorded Last Taken Type Lisinopril/Hydrochlorothiazide 1 tab PO QDAY #15 tab 05/18/18 Unknown Rx [Zestoretic 20-12.5 mg] Lisinopril/Hydrochlorothiazide 1 tab PO QDAY #30 tab 05/18/18 Unknown Rx [Zestoretic 20-25 mg] traMADol [Ultram 50 MG tab] 50 mg PO Q6HR #12 tablet 05/18/18 Unknown Rx HYDROcodone/APAP 5-325 [[place] 1 each PO Q6HR PRN #20 tablet 10/11/18 Unknown Rx 5/325] Acetaminophen/Codeine [Tylenol 1 tab PO Q6H PRN #12 tab 11/13/18 Unknown Rx /Codeine # 3 tab] Ibuprofen [Motrin] 600 mg PO Q8H PRN #20 tablet 11/13/18 Unknown Rx Metformin HCl [metFORMIN] 1,000 mg PO BID #60 tablet 03/28/19 Unknown Rx Baclofen 20 mg PO Q8H PRN #24 tablet 05/11/19 Unknown Rx Ibuprofen [Motrin 800 MG tab] 800 mg PO Q8HR PRN #24 tablet 05/11/19 Unknown Rx traMADol [Ultram 50 MG tab] 50 mg PO Q6HR PRN #12 tablet 05/11/19 Unknown Rx Allergies Allergy/AdvReac Type Severity Reaction Status Date / Time Penicillins Allergy Hives Verified 01/29/16 21:50 ED Review of Systems ROS: Stated complaint: BACK PAIN Other details as noted in HPI Constitutional: denies: chills, fever Eyes: denies: eye pain, eye discharge, vision change ENT: denies: ear pain, throat pain Respiratory: denies: cough, shortness of breath, wheezing Cardiovascular: denies: chest pain, palpitations Endocrine: no symptoms reported Gastrointestinal: denies: abdominal pain, nausea, diarrhea Genitourinary: denies: urgency, dysuria, discharge Musculoskeletal: back pain. denies: joint swelling, arthralgia Skin: denies: rash, lesions Neurological: denies: headache, weakness, paresthesias Psychiatric: denies: anxiety, depression Hematological/Lymphatic: denies: easy bleeding, easy bruising ED Past Medical Hx - Past Medical History Previous Medical History?: Yes Hx Hypertension: Yes Hx Diabetes: Yes Additional medical history: Herniated disc - Surgical History Past Surgical History?: Yes Additional Surgical History: tubal ligation. multiple left foot surgeries. c- section x 3 - Social History Smoking Status: Current Every Day Smoker Substance Use Type: None - Medications Home Medications: Home Medications Medication Instructions Recorded Confirmed Last Taken Type Aspirin 81 mg PO DAILY 06/10/16 06/10/16 06/09/16 History Ferrous Sulfate [Feosol] 325 mg PO QDAY 06/10/16 06/10/16 Unknown History Metformin HCl [Fortamet ER] 1,000 mg PO BID 06/10/16 06/10/16 06/10/16 History raNITIdine HCl [Zantac 150 MG TAB] 150 mg PO DAILY 06/10/16 06/10/16 Unknown History Lisinopril/Hydrochlorothiazide 1 tab PO QDAY #15 tab 05/18/18 Unknown Rx [Zestoretic 20-12.5 mg] Lisinopril/Hydrochlorothiazide 1 tab PO QDAY #30 tab 05/18/18 Unknown Rx [Zestoretic 20-25 mg] traMADol [Ultram 50 MG tab] 50 mg PO Q6HR #12 tablet 05/18/18 Unknown Rx HYDROcodone/APAP 5-325 [[place] 1 each PO Q6HR PRN #20 tablet 10/11/18 Unknown Rx 5/325] Acetaminophen/Codeine [Tylenol 1 tab PO Q6H PRN #12 tab 11/13/18 Unknown Rx /Codeine # 3 tab] Ibuprofen [Motrin] 600 mg PO Q8H PRN #20 tablet 11/13/18 Unknown Rx Metformin HCl [metFORMIN] 1,000 mg PO BID #60 tablet 03/28/19 Unknown Rx Baclofen 20 mg PO Q8H PRN #24 tablet 05/11/19 Unknown Rx Ibuprofen [Motrin 800 MG tab] 800 mg PO Q8HR PRN #24 tablet 05/11/19 Unknown Rx traMADol [Ultram 50 MG tab] 50 mg PO Q6HR PRN #12 tablet 05/11/19 Unknown Rx ED Physical Exam - General Limitations: No Limitations General appearance: alert, in no apparent distress - Head Head exam: Present: atraumatic, normocephalic, normal inspection - Eye Eye exam: Present: normal appearance, PERRL, EOMI Pupils: Present: normal accommodation - ENT ENT exam: Present: normal exam, normal orophraynx, mucous membranes moist, TM's normal bilaterally, normal external ear exam - Neck Neck exam: Present: normal inspection, full ROM. Absent: tenderness, lymphadenopathy - Respiratory Respiratory exam: Present: normal lung sounds bilaterally. Absent: respiratory distress, wheezes, rales, stridor, chest wall tenderness, accessory muscle use, decreased breath sounds - Cardiovascular Cardiovascular Exam: Present: regular rate, normal rhythm, normal heart sounds. Absent: systolic murmur, diastolic murmur, rubs, gallop - GI/Abdominal GI/Abdominal exam: Present: soft, normal bowel sounds. Absent: tenderness, rebound, rigid, hyperactive bowel sounds, hypoactive bowel sounds, organomegaly - Rectal Rectal exam: Present: deferred - Extremities Exam Extremities exam: Present: normal inspection, full ROM, normal capillary refill - Back Exam Back exam: Present: normal inspection, tenderness (palpable lumbosacral paraspinal musculoskeletal tenderness), muscle spasm, paraspinal tenderness. Absent: full ROM, CVA tenderness (L) - Neurological Exam Neurological exam: Present: alert, oriented X3, CN II-XII intact, normal gait, reflexes normal - Psychiatric Psychiatric exam: Present: normal affect, normal mood - Skin Skin exam: Present: warm, dry, intact, normal color. Absent: rash ED Course Vital Signs 05/10/19 23:07 Temperature 97.7 F Pulse Rate 75 Respiratory 14 Rate Blood Pressure 192/119 O2 Sat by Pulse 98 Oximetry - Reevaluation(s) Reevaluation #1: 05/11/19 00:17 This is a 53-year-old -[place] female with a history of chronic low back pain and sciatica who presented to the ED with acute exacerbation of her chronic low back pain that radiates to her buttocks for the last 12 hours after heavy lifting at work. In the ED, patient is alert and oriented 3 and is not in distress however she is hypertensive possibly from severe pain and possibly from noncompliance with her hypertension medications. Patient was treated for pain in the ED and discharged home on pain medications and advised that she needs to follow-up with her primary care physician in the narcotic pain medications that she has been using. Patient was advised to follow-up with her primary care physician in 3-5 days for reevaluation or return to the ED immediately if symptoms get worse. Critical care attestation.: If time is entered above; I have spent that time in minutes in the direct care of this critically ill patient, excluding procedure time. ED Disposition Clinical Impression: Acute exacerbation of chronic low back pain, Spasm of muscle of lower back Chronic low back pain with sciatica Qualifiers: Back pain laterality: bilateral Sciatica laterality: bilateral sciatica Qualified Code(s): M54.42 - Lumbago with sciatica, left side Disposition: TO HOME OR SELFCARE Is pt being admited?: No Does the pt Need Aspirin: No Condition: Stable Instructions: Lumbar Radiculopathy (ED), Arthralgia (ED), Muscle Spasm (ED), Chronic Back Pain (ED) Additional Instructions: Take medications with food, drink plenty of fluids and follow-up with your primary care physician in 5-7 days for reevaluation. Return to the ED immediately if symptoms get worse. Prescriptions: Baclofen 20 mg PO Q8H PRN #24 tablet PRN Reason: Muscle Spasm Ibuprofen [Motrin 800 MG tab] 800 mg PO Q8HR PRN #24 tablet PRN Reason: Pain, Moderate (4-6) traMADol [Ultram 50 MG tab] 50 mg PO Q6HR PRN #12 tablet PRN Reason: Pain Referrals: PRIMARY CARE,MD [Primary Care Provider] - 3-5 Days Forms: Work/School Release Form(ED) Time of Disposition: 00:11 Print Language: LITHUAN[place]
== END 2019-05-11 00:40 | disposition home or self-care (01) ==
LOC: ED 23:06
DX: M54.42 Lumbago with sciatica, left side (principal); G89.29 Other chronic pain; I10 Essential (primary) hypertension; E11.9 Type 2 diabetes mellitus without complications; F17.200 Nicotine dependence, unspecified, uncomplicated; Z79.82 Long term (current) use of aspirin; Z79.84 Long term (current) use of oral hypoglycemic drugs; Z79.899 Other long term (current) drug therapy; Z88.0 Allergy status to penicillin; Z98.51 Tubal ligation status; Z98.890 Other specified postprocedural states
CPT/HCPCS: 96372; 99282; J1100; J1885; Q0162

== ENCOUNTER 2019-09-20 12:43 | Emergency (ER) | payer OTHER ==
--- NOTE | 2019-09-20 14:16 | Emergency Department Report ---
ED Extremity Problem HPI - General Chief complaint: Extremity Problem,Nontraumatic Stated complaint: LFT FOOT PRESSURE/PAIN/SWELLING Time Seen by Provider: 09/20/19 13:37 Source: patient Mode of arrival: Ambulatory Limitations: No Limitations - History of Present Illness Initial comments: 53-year-old female presents to the ER today complaining of left foot pain dorsally. Patient states her pain started yesterday. She denies any particular injury, and denies any strenuous activity. She reports associated swelling, and pain which is worse with ambulation, and palpation of her foot. She denies any bruising, redness, numbness or tingling to the foot. Patient states that she has had about 13 surgeries to her left foot and ankle. The first surgery was in 1997 secondary to a fracture, since then she has had repeated surgeries up until 2009. She states that she was seeing Dr. Ortega for her foot but hasn't seen him in about 3 to 4 years because she was doing fine. She has tried uxlj-lze-fqtrjto pain medication without much relief. She reports no other symptoms at this time. MD Complaint: joint swelling, joint paint -: days(s) (Yesterday ) Location: left - Related Data Home Medications Medication Instructions Recorded Confirmed Last Taken Aspirin 81 mg PO DAILY 06/10/16 06/10/16 06/09/16 Ferrous Sulfate [Feosol] 325 mg PO QDAY 06/10/16 06/10/16 Unknown Metformin HCl [Fortamet ER] 1,000 mg PO BID 06/10/16 06/10/16 06/10/16 raNITIdine HCl [Zantac 150 MG TAB] 150 mg PO DAILY 06/10/16 06/10/16 Unknown Previous Rx's Medication Instructions Recorded Last Taken Type Lisinopril/Hydrochlorothiazide 1 tab PO QDAY #15 tab 05/18/18 Unknown Rx [Zestoretic 20-12.5 mg] Lisinopril/Hydrochlorothiazide 1 tab PO QDAY #30 tab 05/18/18 Unknown Rx [Zestoretic 20-25 mg] traMADoL [Ultram 50 MG tab] 50 mg PO Q6HR #12 tablet 05/18/18 Unknown Rx HYDROcodone/APAP 5-325 [[place] 1 each PO Q6HR PRN #20 tablet 10/11/18 Unknown Rx 5/325] Acetaminophen/Codeine [Tylenol 1 tab PO Q6H PRN #12 tab 11/13/18 Unknown Rx /Codeine # 3 tab] Ibuprofen [Motrin] 600 mg PO Q8H PRN #20 tablet 11/13/18 Unknown Rx Metformin HCl [metFORMIN] 1,000 mg PO BID #60 tablet 03/28/19 Unknown Rx Baclofen 20 mg PO Q8H PRN #24 tablet 05/11/19 Unknown Rx Ibuprofen [Motrin 800 MG tab] 800 mg PO Q8HR PRN #24 tablet 05/11/19 Unknown Rx Diclofenac 1% [Diclofenac 1% 4 gm TP QID #100 gm 09/20/19 Unknown Rx topical gel] traMADoL [Ultram 50 MG tab] 50 mg PO Q6HR PRN #12 tablet 09/20/19 Unknown Rx Allergies Allergy/AdvReac Type Severity Reaction Status Date / Time Penicillins Allergy Hives Verified 01/29/16 21:50 ED Review of Systems ROS: Stated complaint: LFT FOOT PRESSURE/PAIN/SWELLING Other details as noted in HPI Constitutional: denies: chills, fever Respiratory: denies: cough, shortness of breath, SOB with exertion, SOB at rest, wheezing Cardiovascular: denies: chest pain Genitourinary: denies: urgency, dysuria, frequency, hematuria Musculoskeletal: joint swelling, arthralgia Skin: denies: rash Neurological: abnormal gait. denies: headache, weakness, numbness, paresthesias ED Past Medical Hx - Past Medical History Previous Medical History?: Yes Hx Hypertension: Yes Hx Diabetes: Yes Additional medical history: Herniated disc - Surgical History Past Surgical History?: Yes Additional Surgical History: tubal ligation. multiple left foot surgeries. c- section x 3 - Social History Smoking Status: Never Smoker Substance Use Type: None - Medications Home Medications: Home Medications Medication Instructions Recorded Confirmed Last Taken Type Aspirin 81 mg PO DAILY 06/10/16 06/10/16 06/09/16 History Ferrous Sulfate [Feosol] 325 mg PO QDAY 06/10/16 06/10/16 Unknown History Metformin HCl [Fortamet ER] 1,000 mg PO BID 06/10/16 06/10/16 06/10/16 History raNITIdine HCl [Zantac 150 MG TAB] 150 mg PO DAILY 06/10/16 06/10/16 Unknown History Lisinopril/Hydrochlorothiazide 1 tab PO QDAY #15 tab 05/18/18 Unknown Rx [Zestoretic 20-12.5 mg] Lisinopril/Hydrochlorothiazide 1 tab PO QDAY #30 tab 05/18/18 Unknown Rx [Zestoretic 20-25 mg] traMADoL [Ultram 50 MG tab] 50 mg PO Q6HR #12 tablet 05/18/18 Unknown Rx HYDROcodone/APAP 5-325 [[place] 1 each PO Q6HR PRN #20 tablet 10/11/18 Unknown Rx 5/325] Acetaminophen/Codeine [Tylenol 1 tab PO Q6H PRN #12 tab 11/13/18 Unknown Rx /Codeine # 3 tab] Ibuprofen [Motrin] 600 mg PO Q8H PRN #20 tablet 11/13/18 Unknown Rx Metformin HCl [metFORMIN] 1,000 mg PO BID #60 tablet 03/28/19 Unknown Rx Baclofen 20 mg PO Q8H PRN #24 tablet 05/11/19 Unknown Rx Ibuprofen [Motrin 800 MG tab] 800 mg PO Q8HR PRN #24 tablet 05/11/19 Unknown Rx Diclofenac 1% [Diclofenac 1% 4 gm TP QID #100 gm 09/20/19 Unknown Rx topical gel] traMADoL [Ultram 50 MG tab] 50 mg PO Q6HR PRN #12 tablet 09/20/19 Unknown Rx ED Physical Exam - General Limitations: No Limitations General appearance: alert, in no apparent distress - Head Head exam: Present: atraumatic, normocephalic, normal inspection - Eye Eye exam: Present: normal appearance, PERRL, EOMI - ENT ENT exam: Present: normal exam, normal orophraynx, mucous membranes moist - Neck Neck exam: Present: normal inspection. Absent: tenderness, full ROM - Respiratory Respiratory exam: Present: normal lung sounds bilaterally - Cardiovascular Cardiovascular Exam: Present: regular rate, normal rhythm, normal heart sounds - GI/Abdominal GI/Abdominal exam: Present: soft. Absent: distended, tenderness - Extremities Exam Extremities exam: Present: other (Patient has moderate tenderness to palpation over the distal first and second metatarsal bone, with some mild swelling noted over the area, and she has mild to moderate tenderness over the tarsal bones diffusely. There is no erythema, no ecchymosis noted. No acute deformity. Healed surgical incision noted to the foot and ankle. Dorsalis pedis pulse normal. Cap refill normal. Sensation intact.) - Psychiatric Psychiatric exam: Present: normal affect, normal mood - Skin Skin exam: Present: intact ED Medical Decision Making - Radiology Data Radiology results: report reviewed Ordering Physician: AL JOSE Date of Service: 09/20/19 Procedure(s): XR foot 2V LT Accession Number(s): [id number] cc: AL JOSE Fluoro Time In Minutes: LEFT FOOT HISTORY: Pain and swelling. COMPARISON: None. TECHNIQUE: 2 views of the left foot were obtained. FINDINGS: Bones: No acute fracture or dislocation. Moderate osteopenia. Joint spaces: The ankle joint has been fused. The hindfoot and the midfoot have been fused. Soft tissues: Mild soft tissue swelling of the midfoot and forefoot. No soft tissue air or foreign body. Additional findings: None. IMPRESSION: 1. Status post remote bony fusions. 2. Mild nonspecific soft tissue swelling and no other acute finding. Signer Name: Kenton Valera MD Signed: 09/20/2019 3:19 PM Workstation Name: [id number] Transcribed By: REF Dictated By: KENTON VALERA MD Electronically Authenticated By: KENTON VALERA MD Signed Date/Time: 09/20/19 1519 DD/ TD/TT: Critical care attestation.: If time is entered above; I have spent that time in minutes in the direct care of this critically ill patient, excluding procedure time. ED Disposition Clinical Impression: Foot pain, left Disposition: DC-01 TO HOME OR SELFCARE Is pt being admited?: No Does the pt Need Aspirin: No Condition: Stable Instructions: Arthralgia (ED) Additional Instructions: Rest, ice and elevate foot for the next 2-3 days. Use medications as prescribed. Recommend follow up with Dr Ortega if symptoms continues. Prescriptions: Diclofenac 1% [Diclofenac 1% topical gel] 4 gm TP QID #100 gm traMADoL [Ultram 50 MG tab] 50 mg PO Q6HR PRN #12 tablet PRN Reason: Pain Referrals: PRIMARY CARE, [Primary Care Provider] - 3-5 Days Time of Disposition: 15:42
--- NOTE | 2019-09-20 15:23 | XRay Report ---
LEFT FOOT HISTORY: Pain and swelling. COMPARISON: None. TECHNIQUE: 2 views of the left foot were obtained. FINDINGS: Bones: No acute fracture or dislocation. Moderate osteopenia. Joint spaces: The ankle joint has been fused. The hindfoot and the midfoot have been fused. Soft tissues: Mild soft tissue swelling of the midfoot and forefoot. No soft tissue air or foreign oseas dy. Additional findings: None. IMPRESSION: 1. Status post remote bony fusions. 2. Mild nonspecific soft tissue swelling and no other acute finding. Signer Name: Kenton Ruiz MD Signed: 09/20/2019 3:19 PM Workstation Name: [id number]
[2019-09-20 16:19] VITALS: BP 154/90
== END 2019-09-20 16:18 | disposition home or self-care (01) ==
LOC: ED 12:43
DX: M79.672 Pain in left foot (principal); I10 Essential (primary) hypertension; E11.9 Type 2 diabetes mellitus without complications; Z98.51 Tubal ligation status; Z79.899 Other long term (current) drug therapy; Z88.0 Allergy status to penicillin

== ENCOUNTER 2020-07-08 16:05 | Emergency (ER) | payer OTHER ==
[2020-07-08 18:22] VITALS: BP 195/105
[2020-07-08] MEDS ORDERED: CYCLOBENZAPRINE 10 MG TAB PO ONE (19:42)
[2020-07-08] MEDS ORDERED: dexAMETHasone 20 MG/5 ML VIAL IM ONE (19:42)
--- NOTE | 2020-07-08 19:46 | Emergency Department Report ---
ED Back Pain/Injury HPI - General Chief Complaint: Extremity Problem,Nontraumatic Stated Complaint: RT SIDE EXTREME PAIN Time Seen by Provider: 07/08/20 19:39 Source: patient Limitations: No Limitations - History of Present Illness Initial Comments: Patient is a 54-year-old female presents emergency room with complaints of right lower back pain that radiates down her right leg that began 3 days ago. She states that she has been taking wzkz-chn-infiqnd medication and using heating pad and ice pack but continues to have discomfort. She denies any fall or injury. She denies any fever, nausea, vomiting, diarrhea, urinary symptoms, numbness, weakness, bowel or bladder incontinence. She has a past medical history of diabetes and hypertension. She has an allergy to penicillin. She states that she is postmenopausal. - Related Data Home Medications Medication Instructions Recorded Confirmed Last Taken Aspirin 81 mg PO DAILY 06/10/16 06/10/16 06/09/16 Ferrous Sulfate [Feosol] 325 mg PO QDAY 06/10/16 06/10/16 Unknown Metformin HCl [Fortamet ER] 1,000 mg PO BID 06/10/16 06/10/16 06/10/16 raNITIdine HCl [Zantac 150 MG TAB] 150 mg PO DAILY 06/10/16 06/10/16 Unknown Previous Rx's Medication Instructions Recorded Last Taken Type Lisinopril/Hydrochlorothiazide 1 tab PO QDAY #15 tab 05/18/18 Unknown Rx [Zestoretic 20-12.5 mg] Lisinopril/Hydrochlorothiazide 1 tab PO QDAY #30 tab 05/18/18 Unknown Rx [Zestoretic 20-25 mg] traMADoL [Ultram 50 MG tab] 50 mg PO Q6HR #12 tablet 05/18/18 Unknown Rx HYDROcodone/APAP 5-325 [[place] 1 each PO Q6HR PRN #20 tablet 10/11/18 Unknown Rx 5/325] Acetaminophen/Codeine [Tylenol 1 tab PO Q6H PRN #12 tab 11/13/18 Unknown Rx /Codeine # 3 tab] Ibuprofen [Motrin] 600 mg PO Q8H PRN #20 tablet 11/13/18 Unknown Rx Metformin HCl [metFORMIN] 1,000 mg PO BID #60 tablet 03/28/19 Unknown Rx Baclofen 20 mg PO Q8H PRN #24 tablet 05/11/19 Unknown Rx Ibuprofen [Motrin 800 MG tab] 800 mg PO Q8HR PRN #24 tablet 05/11/19 Unknown Rx Diclofenac 1% [Diclofenac 1% 4 gm TP QID #100 gm 09/20/19 Unknown Rx topical gel] traMADoL [Ultram 50 MG tab] 50 mg PO Q6HR PRN #12 tablet 09/20/19 Unknown Rx glipiZIDE [Glucotrol] 5 mg PO Q12H #60 tablet 03/19/20 Unknown Rx Menthol/Camphor [[place] 1 applicatio TP BID #8 oint...g. 07/08/20 Unknown Rx Ointment] Naproxen [EC-Naprosyn] 500 mg PO BID PRN #14 tablet. 07/08/20 Unknown Rx methOCARBAMOL [Robaxin TAB] 500 mg PO BID PRN #14 tab 07/08/20 Unknown Rx Allergies Allergy/AdvReac Type Severity Reaction Status Date / Time Penicillins Allergy Hives Verified 01/29/16 21:50 ED Review of Systems ROS: Stated complaint: RT SIDE EXTREME PAIN Other details as noted in HPI Comment: All other systems reviewed and negative ED Past Medical Hx - Past Medical History Previous Medical History?: Yes Hx Hypertension: Yes Hx Diabetes: Yes Additional medical history: Herniated disc - Surgical History Past Surgical History?: Yes Additional Surgical History: tubal ligation. multiple left foot surgeries. c- section x 3 - Social History Smoking Status: Never Smoker Substance Use Type: None - Medications Home Medications: Home Medications Medication Instructions Recorded Confirmed Last Taken Type Aspirin 81 mg PO DAILY 06/10/16 06/10/16 06/09/16 History Ferrous Sulfate [Feosol] 325 mg PO QDAY 06/10/16 06/10/16 Unknown History Metformin HCl [Fortamet ER] 1,000 mg PO BID 06/10/16 06/10/16 06/10/16 History raNITIdine HCl [Zantac 150 MG TAB] 150 mg PO DAILY 06/10/16 06/10/16 Unknown History Lisinopril/Hydrochlorothiazide 1 tab PO QDAY #15 tab 05/18/18 Unknown Rx [Zestoretic 20-12.5 mg] Lisinopril/Hydrochlorothiazide 1 tab PO QDAY #30 tab 05/18/18 Unknown Rx [Zestoretic 20-25 mg] traMADoL [Ultram 50 MG tab] 50 mg PO Q6HR #12 tablet 05/18/18 Unknown Rx HYDROcodone/APAP 5-325 [[place] 1 each PO Q6HR PRN #20 tablet 10/11/18 Unknown Rx 5/325] Acetaminophen/Codeine [Tylenol 1 tab PO Q6H PRN #12 tab 11/13/18 Unknown Rx /Codeine # 3 tab] Ibuprofen [Motrin] 600 mg PO Q8H PRN #20 tablet 11/13/18 Unknown Rx Metformin HCl [metFORMIN] 1,000 mg PO BID #60 tablet 03/28/19 Unknown Rx Baclofen 20 mg PO Q8H PRN #24 tablet 05/11/19 Unknown Rx Ibuprofen [Motrin 800 MG tab] 800 mg PO Q8HR PRN #24 tablet 05/11/19 Unknown Rx Diclofenac 1% [Diclofenac 1% 4 gm TP QID #100 gm 09/20/19 Unknown Rx topical gel] traMADoL [Ultram 50 MG tab] 50 mg PO Q6HR PRN #12 tablet 09/20/19 Unknown Rx glipiZIDE [Glucotrol] 5 mg PO Q12H #60 tablet 03/19/20 Unknown Rx Menthol/Camphor [[place] 1 applicatio TP BID #8 oint...g. 07/08/20 Unknown Rx Ointment] Naproxen [EC-Naprosyn] 500 mg PO BID PRN #14 tablet.dr 07/08/20 Unknown Rx methOCARBAMOL [Robaxin TAB] 500 mg PO BID PRN #14 tab 07/08/20 Unknown Rx ED Physical Exam - General Limitations: No Limitations General appearance: alert, in no apparent distress - Head Head exam: Present: atraumatic, normocephalic - Eye Eye exam: Present: normal appearance - ENT ENT exam: Present: mucous membranes moist - Neck Neck exam: Present: normal inspection, full ROM. Absent: tenderness - Respiratory Respiratory exam: Present: normal lung sounds bilaterally. Absent: respiratory distress, wheezes, rales, rhonchi, stridor, chest wall tenderness, accessory muscle use, decreased breath sounds, prolonged expiratory - Cardiovascular Cardiovascular Exam: Present: regular rate, normal rhythm, normal heart sounds. Absent: systolic murmur, diastolic murmur, rubs, gallop - Back Exam Back exam: Present: normal inspection, full ROM, paraspinal tenderness (right lumbar paraspinal muscular ttp, ttp to the right gluteus, line manager: NICKI alvarez, no midline C-spine, T-spine or L-spine ttp, no step offs, no deformities). Absent: vertebral tenderness - Neurological Exam Neurological exam: Present: alert, oriented X3, CN II-XII intact, normal gait. Absent: motor sensory deficit - Psychiatric Psychiatric exam: Present: normal affect, normal mood - Skin Skin exam: Present: warm, dry, intact ED Course Vital Signs 07/08/20 07/08/20 07/08/20 18:22 20:10 20:11 Temperature 98 F Pulse Rate 76 Respiratory 18 18 18 Rate Blood Pressure 195/105 [Right] O2 Sat by Pulse 97 Oximetry ED Medical Decision Making - Medical Decision Making Patient is a 54-year-old female presents emergency room with complaints of right lower back pain that radiates down her right leg that began 3 days ago. She states that she has been taking gyrq-ajh-vzmtlfs medication and using heating pad and ice pack but continues to have discomfort. She denies any fall or injury. She denies any fever, nausea, vomiting, diarrhea, urinary symptoms, numbness, weakness, bowel or bladder incontinence. She has a past medical history of diabetes and hypertension. She has an allergy to penicillin. She states that she is postmenopausal. Vitals with elevated blood pressure, otherwise stable. Patient states that she did not take her blood pressure medication today but states that she does have it at home and she will take it when she gets home. She denies any complaints related to elevated blood pressure, no chest pain, no shortness of breath, no headache, no vision changes, no numbness, with no weakness. The up-to-date medical literature does not recommend emergently lowering asymptomatic elevated blood pressure. Advised patient to follow-up with her primary care doctor regarding her blood pressure. On exam:right lumbar paraspinal muscular ttp, ttp to the right gluteus, line manager: NICKI alvarez, no midline C-spine, T-spine or L-spine ttp, no step offs, no deformities, no focal neuro deficit. Examination appears most likely consistent with a sciatica versus radiculopathy. Patient given Toradol IM, dexamethasone IM, Flexeril while in the emergency department as she did not drive and symptoms significantly improved and she was feeling much better and ready to go home. Patient given prescription for naproxen, Robaxin, [place] balm ointment. Patient does not have any red flag warning signs of back pain, no trauma, no unexplained weight loss, no focal neuro deficit, no fever, no IV drug use, no steroid use, no history of cancer. Advised patient Please use medication as prescribed as needed. May use ice pack, heating pad, rest, Epsom salt bath. Follow-up with your primary care doctor for reexamination. Return to emergency room for new or worsening symptoms. - Differential Diagnosis Sciatica, radiculopathy, bulging disc, DDD, spondylosis, spondylolisthesis Critical care attestation.: If time is entered above; I have spent that time in minutes in the direct care of this critically ill patient, excluding procedure time. ED Disposition Clinical Impression: Low back pain Qualifiers: Chronicity: acute Back pain laterality: right Sciatica presence: with sciatica Sciatica laterality: sciatica of right side Qualified Code(s): M54.41 - Lumbago with sciatica, right side Disposition: DC-01 TO HOME OR SELFCARE Is pt being admited?: No Does the pt Need Aspirin: No Condition: Stable Instructions: Muscle Strain, Lyet-xi-[id number], Sciatica Additional Instructions: Please use medication as prescribed as needed. May use ice pack, heating pad, rest, Epsom salt bath. Follow-up with your primary care doctor for reexamination. Return to emergency room for new or worsening symptoms. Prescriptions: Naproxen [EC-Naprosyn] 500 mg PO BID PRN #14 tablet. PRN Reason: pain methOCARBAMOL [Robaxin TAB] 500 mg PO BID PRN #14 tab PRN Reason: pain Menthol/Camphor [[place] Ointment] 1 applicatio TP BID #8 oint...g. Referrals: your, primary care doctor [Other] - 2-3 Days Forms: Work/School Release Form(ED) Time of Disposition: 19:45 Print Language: TAIWANESE
[2020-07-08] MEDS: KETOROLAC 60 MG/2 ML INJ IM ONE ×2 (20:10→20:11)
== END 2020-07-08 20:16 | disposition home or self-care (01) ==
LOC: ED 16:05
DX: M54.5 Low back pain (principal)
CPT/HCPCS: 96372; 99282; J1100; J1885

== ENCOUNTER 2021-01-03 04:55 | Emergency (ER) | payer OTHER ==
--- NOTE | 2021-01-03 08:09 | Emergency Department Report ---
ED Extremity Problem HPI - General Chief complaint: Extremity Injury, Lower Stated complaint: LT FOOT SWELLING/PAIN Time Seen by Provider: 01/03/21 08:02 Source: patient Mode of arrival: Ambulatory Limitations: No Limitations - History of Present Illness Initial comments: 55 year old female presents to ED with c/o dorsal left foot pain. Patient reports increased pain to left foot x 2 days. She states she has had several surgical procedures to her left foot, s/p ORIF, all as result of a hairline fracture several yrs ago. She states the last time she had surgery was in 2009. She states pain in past 2 days has been mainly across her MTP joints. She denies any injury but states she does do lots of walking and standing. She reports increased swelling. She states pain is worse with weight bearing/ambulation. She denies any apparent bruising, or redness. She states she has not been taking anything for pain. MD Complaint: joint swelling, joint paint, other (left foot pain ) -: days(s) (2) - Related Data Home Medications Medication Instructions Recorded Confirmed Last Taken Aspirin 81 mg PO DAILY 06/10/16 06/10/16 06/09/16 Metformin HCl [Fortamet ER] 1,000 mg PO BID 06/10/16 06/10/16 06/10/16 Previous Rx's Medication Instructions Recorded Last Taken Type Lisinopril/Hydrochlorothiazide 1 tab PO QDAY #15 tab 05/18/18 Unknown Rx [Zestoretic 20-12.5 mg] Lisinopril/Hydrochlorothiazide 1 tab PO QDAY #30 tab 05/18/18 Unknown Rx [Zestoretic 20-25 mg] Metformin HCl [metFORMIN] 1,000 mg PO BID #60 tablet 03/28/19 Unknown Rx glipiZIDE [Glucotrol] 5 mg PO Q12H #60 tablet 03/19/20 Unknown Rx Diclofenac 1% [Diclofenac 1% 2 gm TP QID #1 tube 01/03/21 Unknown Rx topical gel] Tramadol HCl/Acetaminophen 1 each PO Q4HR PRN #12 tablet 01/03/21 Unknown Rx [Ultracet Tablet] Allergies Allergy/AdvReac Type Severity Reaction Status Date / Time Penicillins Allergy Hives Verified 01/29/16 21:50 ED Review of Systems ROS: Stated complaint: LT FOOT SWELLING/PAIN Other details as noted in HPI Comment: All other systems reviewed and negative Constitutional: denies: chills, fever Eyes: denies: eye pain, eye discharge, vision change ENT: denies: ear pain, throat pain, dental pain, hearing loss, epistaxis, congestion Respiratory: denies: cough, shortness of breath, SOB with exertion, SOB at rest, wheezing Cardiovascular: denies: chest pain, palpitations Gastrointestinal: denies: abdominal pain, nausea, vomiting, diarrhea, constipation, hematemesis, hematochezia Musculoskeletal: joint swelling, arthralgia Skin: denies: rash, lesions, change in color, change in hair/nails, pruritus Neurological: abnormal gait. denies: headache, weakness, numbness, paresthesias, confusion Psychiatric: denies: anxiety, depression, auditory hallucinations, visual hallucinations, homicidal thoughts, suicidal thoughts Hematological/Lymphatic: denies: easy bleeding, easy bruising, swollen glands ED Past Medical Hx - Past Medical History Hx Hypertension: Yes Hx Diabetes: Yes Additional medical history: Herniated disc - Surgical History Additional Surgical History: tubal ligation. multiple left foot surgeries. c- section x 3 - Social History Smoking Status: Never Smoker Substance Use Type: Alcohol - Medications Home Medications: Home Medications Medication Instructions Recorded Confirmed Last Taken Type Aspirin 81 mg PO DAILY 06/10/16 06/10/16 06/09/16 History Metformin HCl [Fortamet ER] 1,000 mg PO BID 06/10/16 06/10/16 06/10/16 History Lisinopril/Hydrochlorothiazide 1 tab PO QDAY #15 tab 05/18/18 Unknown Rx [Zestoretic 20-12.5 mg] Lisinopril/Hydrochlorothiazide 1 tab PO QDAY #30 tab 05/18/18 Unknown Rx [Zestoretic 20-25 mg] Metformin HCl [metFORMIN] 1,000 mg PO BID #60 tablet 03/28/19 Unknown Rx glipiZIDE [Glucotrol] 5 mg PO Q12H #60 tablet 03/19/20 Unknown Rx Diclofenac 1% [Diclofenac 1% 2 gm TP QID #1 tube 01/03/21 Unknown Rx topical gel] Tramadol HCl/Acetaminophen 1 each PO Q4HR PRN #12 tablet 01/03/21 Unknown Rx [Ultracet Tablet] ED Physical Exam - General Limitations: No Limitations General appearance: alert, in no apparent distress - Head Head exam: Present: atraumatic, normocephalic, normal inspection - Eye Eye exam: Present: normal appearance, PERRL, EOMI Pupils: Present: normal accommodation - Neck Neck exam: Present: normal inspection, full ROM - Respiratory Respiratory exam: Present: normal lung sounds bilaterally. Absent: respiratory distress - Cardiovascular Cardiovascular Exam: Present: regular rate - Expanded Lower Extremity Exam Left Foot/Toe exam: Present: full ROM (but with some pain on ROM ), tenderness (diffuse ttp dorsal aspect of foot ), swelling (mild dorsal swelling). Absent: abrasion, laceration, ecchymosis, deformity, crepidus, dislocation, erythema, amputation, puncture wound, foreign body, calcaneal tenderness, nail avulsion, subungual hematoma Neuro vascular tendon exam: Present: no vascular compromise. Absent: motor deficit, sensory deficit Gait: Positive: observed and limited by pain - Neurological Exam Neurological exam: Present: alert, oriented X3, CN II-XII intact, normal gait. Absent: motor sensory deficit - Psychiatric Psychiatric exam: Present: normal affect, normal mood - Skin Skin exam: Present: intact ED Course Vital Signs 01/03/21 05:03 Temperature 98.5 F Pulse Rate 69 Respiratory 18 Rate Blood Pressure 124/85 [Left] O2 Sat by Pulse 100 Oximetry Critical care attestation.: If time is entered above; I have spent that time in minutes in the direct care of this critically ill patient, excluding procedure time. ED Disposition Clinical Impression: Foot pain, left Disposition: DC-01 TO HOME OR SELFCARE Is pt being admited?: No Does the pt Need Aspirin: No Condition: Stable Instructions: Foot Pain Additional Instructions: Take the ultracet and use the voltaren gel as prescribed. Elevate your foot as often as possible for the next few days and follow-up with your public stenographer Dr. Tremayne Ortega in 1 week. Return to the ER if your symptoms changes or worsens in any way. Prescriptions: Diclofenac 1% [Diclofenac 1% topical gel] 2 gm TP QID #1 tube Tramadol HCl/Acetaminophen [Ultracet Tablet] 1 each PO Q4HR PRN #12 tablet PRN Reason: Pain Referrals: ARNOLD SAEED DPM [Staff Physician] - 7-10 days ([facility] Teacher) Forms: Work/School Release Form(ED) Time of Disposition: 08:16
== END 2021-01-03 09:21 | disposition home or self-care (01) ==
LOC: ED 04:55
CPT/HCPCS: 99281

== ENCOUNTER 2022-01-04 15:51 | Emergency (ER) | payer OTHER ==
--- NOTE | 2022-01-04 17:21 | XRay Report ---
. Left foot-2 views INDICATION: foot pain. COMPARISON: None available. IMPRESSION: Hindfoot triple arthrodesis change with no hardware complication. Mature-appearing ankyl osis. No acute fracture identified. Near-anatomic alignment. Moderate degenerative arthrosis at some of the TMT joints in particular. Mild generalized soft tissue swelling about the forefoot extending into the ankle. Signer Name: Kang Mosley MD Signed: 01/04/2022 5:17 PM Workstation Name: [id number]
[2022-01-04 22:13] VITALS: BP 136/72
[2022-01-04] MEDS ORDERED: predniSONE 20 MG TAB PO ONE (22:13)
[2022-01-04] MEDS ORDERED: IBUPROFEN 600 MG TAB PO ONE (22:13)
[2022-01-04] MEDS ORDERED: ACETAMINOPHEN 500 MG TAB PO ONE (22:13)
--- NOTE | 2022-01-04 22:19 | Emergency Department Report ---
ED Extremity Problem HPI - General Chief complaint: Pain General Stated complaint: RT KNEE AND FOOT Source: patient Mode of arrival: Ambulatory Limitations: No Limitations - History of Present Illness Initial comments: Patient is a 56-year-old -Citizen Of [place] female with a history of hypertension and [id number]-[id number] diabetes and previous multiple left ankle surgeries presents to the ED with acute exacerbation of her chronic left ankle and foot pain with swelling for over 2 weeks, worse in the last 2 days. Patient states that the pain is especially worse with ambulation, stating that the pain radiates from the left ankle to distal left plantar foot. Patient denies fall, traumatic injury, heavy lifting, chest pain and shortness of breath, fever, chills, nausea and vomiting, numbness and tingling or weakness of lower extremities bilaterally and back pain. MD Complaint: extremity pain (left ankle and foot pain), extremity swelling (Left ankle and foot pain with swelling), joint swelling (left ankle and foot pain with swelling), joint paint (Left ankle and foot pain with swelling) -: Gradual, year(s) (>5) Location: left, lower extremity (Ankle and foot) History of Same: Yes (Chronic) -: Yes arthralgia Severity scale (0 -10): 8 Quality: aching, sharp Consistency: constant Improves with: nothing Worsens with: weight bearing, walking, exertion, palpation Associated Symptoms: arthralgias. denies: chest pain, shortness of breath, fever, myalgias, rash - Related Data Home Medications Medication Instructions Recorded Confirmed Last Taken Aspirin 81 mg PO DAILY 06/10/16 06/10/16 06/09/16 Metformin HCl [Fortamet ER] 1,000 mg PO BID 06/10/16 06/10/16 06/10/16 Previous Rx's Medication Instructions Recorded Last Taken Type Lisinopril/Hydrochlorothiazide 1 tab PO QDAY #15 tab 05/18/18 Unknown Rx [Zestoretic 20-12.5 mg] Lisinopril/Hydrochlorothiazide 1 tab PO QDAY #30 tab 05/18/18 Unknown Rx [Zestoretic 20-25 mg] Metformin HCl [metFORMIN] 1,000 mg PO BID #60 tablet 03/28/19 Unknown Rx glipiZIDE [Glucotrol] 5 mg PO Q12H #60 tablet 03/19/20 Unknown Rx Diclofenac 1% [Diclofenac 1% 2 gm TP QID #1 tube 01/03/21 Unknown Rx topical gel] Tramadol HCl/Acetaminophen 1 each PO Q4HR PRN #12 tablet 01/03/21 Unknown Rx [Ultracet Tablet] Naproxen 500 mg PO Q12H PRN #40 tab 01/04/22 Unknown Rx predniSONE [Deltasone] 60 mg PO QDAY #15 tab 01/04/22 Unknown Rx traMADoL [Ultram] 50 mg PO Q6HR PRN #12 tablet 01/04/22 Unknown Rx Allergies Allergy/AdvReac Type Severity Reaction Status Date / Time Penicillins Allergy Hives Verified 01/29/16 21:50 ED Review of Systems ROS: Stated complaint: RT KNEE AND FOOT Other details as noted in HPI Constitutional: denies: chills, fever Eyes: denies: eye pain, eye discharge, vision change ENT: denies: ear pain, throat pain Respiratory: denies: cough, shortness of breath, wheezing Cardiovascular: denies: chest pain, palpitations Endocrine: no symptoms reported Gastrointestinal: denies: abdominal pain, nausea, diarrhea Genitourinary: denies: urgency, dysuria, discharge Musculoskeletal: joint swelling (Left ankle and foot swelling), arthralgia (Left ankle and foot pain with swelling). denies: back pain Skin: denies: rash, lesions Neurological: denies: headache, weakness, paresthesias Psychiatric: denies: anxiety, depression Hematological/Lymphatic: denies: easy bleeding, easy bruising ED Past Medical Hx - Past Medical History Hx Hypertension: Yes Hx Diabetes: Yes Additional medical history: Herniated disc - Surgical History Additional Surgical History: tubal ligation. multiple left foot surgeries. c- section x 3 - Social History Smoking Status: Unknown if ever smoked Substance Use Type: None - Medications Home Medications: Home Medications Medication Instructions Recorded Confirmed Last Taken Type Aspirin 81 mg PO DAILY 06/10/16 06/10/16 06/09/16 History Metformin HCl [Fortamet ER] 1,000 mg PO BID 06/10/16 06/10/16 06/10/16 History Lisinopril/Hydrochlorothiazide 1 tab PO QDAY #15 tab 05/18/18 Unknown Rx [Zestoretic 20-12.5 mg] Lisinopril/Hydrochlorothiazide 1 tab PO QDAY #30 tab 05/18/18 Unknown Rx [Zestoretic 20-25 mg] Metformin HCl [metFORMIN] 1,000 mg PO BID #60 tablet 03/28/19 Unknown Rx glipiZIDE [Glucotrol] 5 mg PO Q12H #60 tablet 03/19/20 Unknown Rx Diclofenac 1% [Diclofenac 1% 2 gm TP QID #1 tube 01/03/21 Unknown Rx topical gel] Tramadol HCl/Acetaminophen 1 each PO Q4HR PRN #12 tablet 01/03/21 Unknown Rx [Ultracet Tablet] Naproxen 500 mg PO Q12H PRN #40 tab 01/04/22 Unknown Rx predniSONE [Deltasone] 60 mg PO QDAY #15 tab 01/04/22 Unknown Rx traMADoL [Ultram] 50 mg PO Q6HR PRN #12 tablet 01/04/22 Unknown Rx ED Physical Exam - General Limitations: No Limitations General appearance: alert, in no apparent distress - Head Head exam: Present: atraumatic, normocephalic, normal inspection - Eye Eye exam: Present: normal appearance, PERRL, EOMI Pupils: Present: normal accommodation - ENT ENT exam: Present: normal exam, normal orophraynx, mucous membranes moist, TM's normal bilaterally, normal external ear exam - Neck Neck exam: Present: normal inspection, full ROM. Absent: tenderness - Respiratory Respiratory exam: Present: normal lung sounds bilaterally. Absent: respiratory distress, wheezes, rales, rhonchi, chest wall tenderness, accessory muscle use - Cardiovascular Cardiovascular Exam: Present: regular rate, normal rhythm, normal heart sounds. Absent: systolic murmur, diastolic murmur, rubs, gallop - GI/Abdominal GI/Abdominal exam: Present: soft, normal bowel sounds. Absent: tenderness, guarding, rebound, hyperactive bowel sounds, hypoactive bowel sounds, organomegaly - Extremities Exam Extremities exam: Present: normal inspection, full ROM, tenderness (Palpable left ankle and foot tenderness with mild swelling), normal capillary refill, joint swelling (Left ankle and foot swelling). Absent: calf tenderness - Back Exam Back exam: Present: normal inspection, full ROM. Absent: tenderness, CVA tenderness (R), CVA tenderness (L), muscle spasm, paraspinal tenderness, vertebral tenderness - Neurological Exam Neurological exam: Present: alert, oriented X3, CN II-XII intact, normal gait, reflexes normal - Psychiatric Psychiatric exam: Present: normal affect, normal mood - Skin Skin exam: Present: warm, dry, intact, normal color. Absent: rash ED Course Vital Signs 01/04/22 01/04/22 01/04/22 16:21 22:08 22:11 Temperature 98.4 F 98.4 F 98.0 F Pulse Rate 86 72 72 Respiratory 14 18 18 Rate Blood Pressure 124/75 136/72 Blood Pressure 136/77 [Left] O2 Sat by Pulse 98 100 100 Oximetry ED Medical Decision Making - Medical Decision Making This is a 56-year-old -Citizen Of [place] female with a history of hypertension and hrx-pzynpgt-fjnbtevrp diabetes and previous multiple left ankle surgeries presents to the ED with acute exacerbation of her chronic left ankle and foot pain with swelling for over 2 weeks, worse in the last 2 days. Patient states that the pain is especially worse with ambulation, stating that the pain radiates from the left ankle to distal left plantar foot. In the ED, patient is alert and oriented x3 and is not in any distress. Patient was treated for pain in the ED. Patient the history and physical exam findings, the patient was discharged home on pain medications and advised to follow-up with her primary care physician in 5 to 7 days for reevaluation or return to the ED immediately if symptoms get worse. - Differential Diagnosis Ankle sprain; chronic osteoarthritis; plantar fasciitis; ankle tendinitis Critical care attestation.: If time is entered above; I have spent that time in minutes in the direct care of this critically ill patient, excluding procedure time. ED Disposition Clinical Impression: Chronic osteoarthritis, Chronic pain of left ankle, Plantar fasciitis of left foot Muscle strain of left ankle Qualifiers: Encounter type: initial encounter Qualified Code(s): S96.912A - Strain of unspecified muscle and tendon at ankle and foot level, left foot, initial encounter Disposition: HOME / SELF CARE / HOMELESS Is pt being admited?: No Does the pt Need Aspirin: No Condition: Stable Instructions: Muscle Strain, Sgvt-ay-Thas, Arthritis, [id number], Musculoskeletal Pain, Plantar Fasciitis, Osteoarthritis Additional Instructions: Take medication with food, drink plenty of fluids and follow-up with your primary care physician in 7 to 10 days for reevaluation. Return to the ED immediately if symptoms get worse Prescriptions: predniSONE [Deltasone] 60 mg PO QDAY #15 tab Naproxen 500 mg PO Q12H PRN #40 tab PRN Reason: Pain , Severe (7-10) traMADoL [Ultram] 50 mg PO Q6HR PRN #12 tablet PRN Reason: Pain Referrals: [facility] [Provider Group] - 7-10 days Forms: Work/School Release Form(ED) Time of Disposition: 22:22 Print Language: MALTESE
== END 2022-01-04 22:57 | disposition home or self-care (01) ==
LOC: ED 15:51
DX: S96.912A Strain of unspecified muscle and tendon at ankle and foot level, left foot, initial encounter (principal); M19.90 Unspecified osteoarthritis, unspecified site; M72.2 Plantar fascial fibromatosis; I10 Essential (primary) hypertension; E11.9 Type 2 diabetes mellitus without complications; G89.29 Other chronic pain; Z88.0 Allergy status to penicillin; Z79.899 Other long term (current) drug therapy; X58.XXXA Exposure to other specified factors, initial encounter; Y93.89 Activity, other specified; Y92.89 Other specified places as the place of occurrence of the external cause; Y99.8 Other external cause status
CPT/HCPCS: 99283

== ENCOUNTER 2022-03-28 16:02 | Emergency (ER) | payer SELFPAY ==
[2022-03-28 17:37] LABS: Basophils % (Auto) 0.7 % (0.0-1.8); Eosinophils # (Auto) 0.1 K/mm3 (0.0-0.4); Eosinophils % (Auto) 1.4 % (0.0-4.3); Hematocrit 40.2 % (30.3-42.9); Lymphocytes # (Auto) 1.8 K/mm3 (1.2-5.4); Lymphocytes % (Auto) 28.9 % (13.4-35.0); Mean Corpuscular HGB Conc 32 % (30-34); Mean Corpuscular Volume 81 fl (79-97); Monocytes # (Auto) 0.5 K/mm3 (0.0-0.8); Monocytes % (Auto) 8.8 % (0.0-7.3); Platelet Count 307 K/mm3 (140-440); Red Blood Count 4.94 M/mm3 (3.65-5.03); Red Cell Distribution Width 14.3 % (13.2-15.2)
[2022-03-28 18:05] LABS: Albumin 4.2 g/dL (3.9-5)
[2022-03-28] MEDS ORDERED: SODIUM CHLORIDE 0.9% 1000 ML 1,000 ML IV ONE (19:31)
[2022-03-29 00:43] VITALS: BP 126/80
== END 2022-03-29 02:57 | disposition left against medical advice (07) ==
LOC: ED 16:02
DX: R73.9 Hyperglycemia, unspecified (principal); Z53.21 Procedure and treatment not carried out due to patient leaving prior to being seen by health care provider
CPT/HCPCS: 36415; 80053; 82010; 82550; 82553; 82805; 84484; 85025; 86140